=== PATIENT | male | born 1960 | race Caucasian/White ===

== ENCOUNTER 2019-04-05 11:34 | Emergency (ER) | payer BC ==
[2019-04-05] MEDS ORDERED: NS 0.9% 1000 ML** 1,000 ML IV ONE (12:19)
--- NOTE | 2019-04-05 12:19 | ED ---
Complex/Multi-Sys Presentation - HPI Summary HPI Summary: Patient is a 59 y/o M presenting to ED with complaints of bloody stool, light- headedness, lower back pain. He reports he has been experiencing light- headedness with changes in position. Patient had a bloody bowel movement earlier today, 04/05/19. He characterizes blood as bright red. He denies noticing any blood clots. No Hx of hemorrhoids and GI bleed, but patient has had diverticulitis previously. Patient is on Flomax and takes a low dose ASA daily. He occasionally takes Aleve. Last colonoscopy was 9 years ago and is reported to have been not concerning. On triage, pain is rated 1/10, nothing is noted to aggravate/alleviate Sx. Home medications and allergies are reviewed. - History Of Current Complaint Chief Complaint: EDGIBleed Time Seen by Provider: 04/05/19 12:03 Hx Obtained From: Patient Onset/Duration: Still Present Timing: Constant Severity Currently: Mild Location: Pain At: - lower back Aggravating Factor(s): changes in position aggravate lightheadedness Alleviating Factor(s): nothing Associated Signs And Symptoms: Positive: Dizziness - lightheadedness, Back Pain , Other - bloody bowel movement - Allergies/Home Medications Allergies/Adverse Reactions: Allergies Allergy/AdvReac Type Severity Reaction Status Date / Time codeine Allergy Unknown Unknown Verified 04/05/19 12:21 Reaction Details Home Medications: Home Medications Aspirin [Aspirin EC] 81 mg PO DAILY 04/05/19 [History Confirmed 04/05/19] Tamsulosin CAP* [Flomax CAP*] 0.4 mg PO DAILY 04/05/19 [History Confirmed ] PMH/Surg Hx/FS Hx/Imm Hx Endocrine/Hematology History: Denies: Hx Diabetes, Hx Thyroid Disease Cardiovascular History: Denies: Hx Hypertension Respiratory History: Denies: Hx Asthma, Hx Chronic Obstructive Pulmonary Disease (COPD) GI History: Denies: Hx Ulcer Infectious Disease History: No Infectious Disease History: Reports: Traveled Outside the [place] in Last 30 Days Denies: Hx Hepatitis, Hx Human Immunodeficiency Virus (HIV) - Family History Known Family History: Negative: Cardiac Disease, Hypertension, Diabetes - Social History Alcohol Use: Occasionally Substance Use Type: Reports: None Smoking Status (MU): Never Smoked Tobacco Review of Systems Genitourinary: Other - positive - bloody bowel movement Musculoskeletal: Other - positive - lower back pain Neurological: Other - positive - lightheadedness All Other Systems Reviewed And Are Negative: Yes Physical Exam - Summary Physical Exam Summary: VITAL SIGNS: Reviewed. GENERAL: Patient is a well-developed and nourished male who is lying comfortable in the stretcher. Patient is not in any acute respiratory distress. HEAD AND FACE: No signs of trauma. No ecchymosis, hematomas or skull depressions. No sinus tenderness. EYES: PERRLA, EOMI x 2, No injected conjunctiva, no nystagmus. EARS: Hearing grossly intact. Ear canals and tympanic membranes are within normal limits. MOUTH: Oropharynx within normal limits. NECK: Supple, trachea is midline, no adenopathy, no JVD, no carotid bruit, no c- spine tenderness, neck with full ROM. CHEST: Symmetric, no tenderness at palpation. LUNGS: Clear to auscultation bilaterally. No wheezing or crackles. CVS: Regular rate and rhythm, S1 and S2 present, no murmurs or gallops appreciated. ABDOMEN: Soft, non-tender. No signs of distention. No rebound, no guarding, and no masses palpated. Bowel sounds are normal. RECTAL EXAM: No gross blood, melena, or hemorrhoids. EXTREMITIES: FROM in all major joints, no edema, no cyanosis or clubbing. NEURO: Alert and oriented x 3. No acute neurological deficits. Speech is normal and follows commands. SKIN: Dry and warm. Triage Information Reviewed: Yes Vital Signs On Initial Exam: Initial Vitals Temp Pulse Resp BP Pulse Ox 98.5 F 69 18 147/91 95 04/05/19 11:36 04/05/19 11:36 04/05/19 11:36 04/05/19 11:36 04/05/19 11:36 Vital Signs Reviewed: Yes Diagnostics - Vital Signs Vital Signs Temp Pulse Resp BP Pulse Ox 04/05/19 11:36 98.5 F 69 18 147/91 95 - Laboratory Result Diagrams: 04/05/19 12:34 04/05/19 12:34 Lab Statement: Any lab studies that have been ordered have been reviewed, and results considered in the medical decision making process. Re-Evaluation - Re-Evaluation First Eval Re-Evaluation Time: 14:08 Comment: Results of labs, tests, and consult was discussed with the patient, he is agreeable with discharge to home and GI office follow-up Complex Multi-Symp Course/Dx Assessment/Plan: Patient is a 59 y/o M presenting to ED with complaints of bloody stool, light-headedness, lower back pain. He reports he has been experiencing light-headedness with changes in position. Patient had a bloody bowel movement earlier today, 04/05/19. He characterizes blood as bright red. He denies noticing any blood clots. No Hx of hemorrhoids and GI bleed, but patient has had diverticulitis previously. Patient is on Flomax and takes a low dose ASA daily. He occasionally takes Aleve. Last colonoscopy was 9 years ago and is reported to have been not concerning. Blood work without any significant abnormality except for BUN of 38, CPK of 264, urinalysis is negative for UTI. I discussed my physical exam and findings with Dr. Hardy from GI and he recommends for the patient to be discharged home and follow up with him as an outpatient. I discussed my findings and test results and the plan with the patient and he agrees. I recommended for the patient to return to the emergency room if he develops more bleeding, dizziness, lightheadedness or any other symptoms. The patient understands and agrees. - Diagnoses Provider Diagnoses: GI bleed - Physician Notifications Discussed Care Of Patient With: Warren Alvarenga Time Discussed With Above Provider: 14:06 Instructed by Provider To: Other - Patient's case was discussed with Dr. Alvarenga , Dr. Alvarenga recommends for patient to be discharged to home and follow up with him in office. Discharge - Sign-Out/Discharge Documenting (check all that apply): Patient Departure - discharge Patient Received Moderate/Deep Sedation with Procedure: No - Discharge Plan Condition: Stable Disposition: HOME Patient Education Materials: Gastrointestinal Bleeding (ED) Referrals: Caryn Murillo MD [Primary Care Provider] - 3 Days Warren Alvarenga MD [Medical Doctor] - 3 Days Additional Instructions: PLEASE RETURN TO ED FOR ANY NEW OR WORSENING SYMPTOMS. PLEASE FOLLOW-UP WITH YOUR PRIMARY CARE PHYSICIAN WITHIN THREE DAYS. - Billing Disposition and Condition Condition: STABLE Disposition: Home - Attestation Statements Document Initiated by Scribe: Yes Documenting Scribe: SEAN MILLIGAN Provider For Whom Scribe is Documenting (Include Credential): AMRIT BOLAÑOS MD Scribe Attestation: I, SEAN MILLIGAN, scribed for AMRIT BOLAÑOS MD on 04/06/19 at 0725. Scribe Documentation Reviewed: Yes Provider Attestation: The documentation as recorded by the scribeSEAN accurately reflects the service I personally performed and the decisions made by me, AMRIT BOLAÑOS MD Status of Scribe Document: Viewed
[2019-04-05 12:57] LABS: ABS Eosinophils 0.2 10^3/ul (0-0.6); ABS Monocytes 0.6 10^3/ul (0-0.8); ABS Neutrophils 2.5 10^3/ul (1.5-7.7); Eosinophil % 4.1 %; Hematocrit 45 % (42-52); Hemoglobin 15.1 g/dL (14.0-18.0); Lymphocyte % 37.3 %; Mean Corpuscular HGB Conc 34 g/dL (31-36); Mean Corpuscular Hemoglobin 30 pg (27-31); Mean Corpuscular Volume 89 fL (80-94); Mean Platelet Volume 8.6 fL (7.4-10.4); Nucleated Red Blood Cells % 0.3; Platelet Count 225 10^3/uL (150-450); Red Blood Count 5.08 10^6 /uL (4.18-5.48); Red Cell Distribution Width 14 % (10-15); White Blood Count 5.4 10^3/uL (3.5-10.8)
[2019-04-05 13:08] LABS: Albumin 4.5 g/dL (3.2-5.2); Albumin/Globulin Ratio 1.8 (1-3); BUN/Creatinine Ratio 28.9 (8-20); C Reactive Protein 2.16 mg/L (<8.01); Calcium 9.1 mg/dL (8.6-10.3); EGFR African American 95.9 (>60); EGFR Non-African American 79.2 (>60); Globulin 2.5 g/dL (2-4); Potassium 4.3 mmol/L (3.5-5.0); Total Bilirubin 0.9 mg/dL (0.2-1.0)
[2019-04-05 13:10] LABS: Activated Partial Thrombo Time 34.4 seconds (26.0-38.0); INR 0.97 (0.82-1.09)
[2019-04-05 13:53] LABS: Urine Appearance Cloudy; Urine Bilirubin Negative (Negative); Urine Blood Negative (Negative); Urine Color Yellow; Urine Glucose Negative (Negative); Urine Ketones Trace (Negative); Urine Nitrite Negative (Negative); Urine Protein Negative (Negative); Urine Specific Gravity 1.033 (1.010-1.030); Urine Urobilinogen Negative (Negative)
[2019-04-05 14:50] VITALS: BP 149/86
== END 2019-04-05 14:50 | disposition home or self-care (01) ==
LOC: ED 11:34
DX: K92.2 Gastrointestinal hemorrhage, unspecified (principal); Z79.82 Long term (current) use of aspirin; Z79.899 Other long term (current) drug therapy; Z88.5 Allergy status to narcotic agent
CPT/HCPCS: 36415; 80053; 81003; 82272; 82550; 83605; 83690; 83880; 85025; 85610; 85730; 86140; 86850; 86900; 86901; 96360; 99283

== ENCOUNTER 2019-07-23 22:24 | Observation (INO) | payer BC ==
--- OUTSIDE RECORDS SUMMARY | 2019-07-23 22:40 | XMS REPORT | Continuity of Care Document ---
:1960 External Reference #:[id number] Author Name Pj Haynes MD (transmitted by agent of provider Charu Carr) Address [address] [place] [address] Care Team Providers Name Role Phone Caryn Murillo MD - Family Care Team Information Stna [phone] Medicine Problems Description No Information Available Social History Type Date Description Comments Sex Unknown Tobacco Use Start: Unknown Patient has never smoked Smoking Status Reviewed: 07/09/19 Patient has never smoked Allergies, Adverse Reactions, Alerts Description No Known Drug Allergies Medications Active Medications SIG Qnty Indications Ordering Provider Date Naproxen One tab by 180tabs M54.5 Pj Haynes MD 07/09/2019 500mg Tablets mouth twice daily Tamsulosin HCL 1 by mouth Unknown 0.4mg every day Capsules Glucosamine Unknown Chondroitin 1500 Complex 1500Com Capsules Immunizations Description No Information Available Vital Signs Date Vital Result Comment 07/09/2019 8:57am Height 70 inches 5'10" Weight 224.00 lb Heart Rate 68 /min BP Systolic 144 mmHg BP Diastolic 88 mmHg Body Temperature 98.0 F Pain Level 4 O2 % BldC Oximetry 96 % BMI (Body Mass Index) 32.1 kg/m2 Results Description No Information Available Procedures Description No Information Available Medical Devices Description No Information Available Encounters Description No Information Available Assessments Date Code Description Provider 07/09/2019 M54.5 Low back pain Pj Haynes MD 07/09/2019 R76.8 Other specified abnormal immunological findings Pj Haynes MD in serum 07/09/2019 M06.4 Inflammatory polyarthropathy Pj Haynes MD 07/09/2019 M25.552 Pain in left hip Pj Haynes MD Plan of Treatment 07/09/2019 - Pj Haynes MDM54.5 Low back painNew Medication:Naproxen 500 mg - One tab by mouth twice dailyFollow up:6-8 kkaivN36.8 Other specified abnormal immunological findings in lkcgoO42.4 Inflammatory csqzjttbrgtqoanH01.552 Pain in left hip Functional Status Description No Information Available Mental Status Description No Information Available Referrals Description No Information Available
[2019-07-23] MEDS ORDERED: Aspirin 81 mg CHEW TAB* 81 MG TAB.CHEW PO ONE (23:27)
--- NOTE | 2019-07-23 23:28 | ED ---
HPI Chest Pain - HPI Summary HPI Summary: This pt is a 59 Y/O M [facility] by his family by EMS for CP that radiated into his neck that was rated a 3/10 and was located midsternal at 0900 this morning. He states that the pain could be described as pressure. He states that he was finishing a walk when the onset happened and became diaphoretic and SOB. He states that the pain started as an 8/10 and reduced to a 3/10 after he was given Nitro by EMS en route to [facility]. He denies any fevers, chills, N/V/D, and headaches. He states that he had no aggravating factors. He recently started taking Naproxen Sodium. He states that he has a pertinent FHx of both his father and uncle having cardiac issues starting in their 50s. He states that his father had to get a triple bypass. He has a PMHx of exposure to Hep. C. - History of Current Complaint Chief Complaint: EDChestPainROMI Hx Obtained From: Patient Onset/Duration: Started Hours Ago Time of Onset: 09:00 Timing: Constant Initial Severity: Severe - 8/10 Current Severity: Mild Pain Intensity: 3 Pain Scale Used: 0-10 Numeric Chest Pain Location: Mid Sternal Chest Pain Radiates: Yes Chest Pain Radiates To:: Other - neck Character: Pressure/Squeezing Aggravating Factor(s): Exertion - states onset started after a walk Alleviating Factor(s): NTG 123 - pain reduced when given nitro Associated Signs and Symptoms: Positive: Negative - diarrhea, Chest Pain, Shortness of Breath, Diaphoresis. Negative: Headaches, Fever, Chills, Nausea, Vomiting - Allergy/Home Medications Allergies/Adverse Reactions: Allergies Allergy/AdvReac Type Severity Reaction Status Date / Time codeine Allergy Unknown Unknown Verified 07/23/19 22:30 Reaction Details PMH/Surg Hx/FS Hx/Imm Hx Previously Healthy: Yes Endocrine/Hematology History: Denies: Hx Diabetes, Hx Thyroid Disease Cardiovascular History: Denies: Hx Hypertension Respiratory History: Denies: Hx Asthma, Hx Chronic Obstructive Pulmonary Disease (COPD) GI History: Denies: Hx Ulcer Sensory History: Reports: Hx Contacts or Glasses Opthamlomology History: Reports: Hx Contacts or Glasses - Cancer History Hx Chemotherapy: No Hx Radiation Therapy: No - Surgical History Surgical History: Yes Surgery Procedure, Year, and Place: hernia repair 1962 - Immunization History Date of Tetanus Vaccine: UNK Immunizations Up to Date: No Infectious Disease History: No Infectious Disease History: Denies: Hx Hepatitis, Hx Human Immunodeficiency Virus (HIV), Traveled Outside the [place] in Last 30 Days - Family History Known Family History: Positive: Cardiac Disease - mother and father have had bypass. Paternal parent's young Negative: Hypertension, Diabetes - Social History Occupation: Employed Full-time Lives: With Family Alcohol Use: Occasionally Hx Substance Use: No Substance Use Type: Reports: None Hx Tobacco Use: No Smoking Status (MU): Never Smoked Tobacco Review of Systems - ROS Summary Review of Systems Summary: Home Medications Medication Instructions Recorded Confirmed Type Aspirin [Aspirin EC] 81 mg PO DAILY 04/05/19 07/23/19 History Tamsulosin CAP* [Flomax CAP*] 0.4 mg PO DAILY 04/05/19 07/23/19 History Naproxen Sodium [Aleve] 440 mg PO BID PRN 04/15/19 07/23/19 History Positive: Skin Diaphoresis. Negative: Fever, Chills Positive: Chest Pain Positive: Shortness Of Breath Negative: Vomiting, Diarrhea, Nausea Negative: Headache All Other Systems Reviewed And Are Negative: Yes Physical Exam Triage Information Reviewed: Yes Vital Signs On Initial Exam: Initial Vitals Temp Pulse Resp BP Pulse Ox 98.0 F 77 18 158/90 94 07/23/19 22:25 07/23/19 22:25 07/23/19 22:25 07/23/19 22:25 07/23/19 22:25 Vital Signs Reviewed: Yes Procedures - Sedation Patient Received Moderate/Deep Sedation with Procedure: No Diagnostics - Vital Signs Vital Signs Temp Pulse Resp BP Pulse Ox 07/23/19 22:25 98.0 F 77 18 158/90 94 - Laboratory Result Diagrams: 07/24/19 05:20 07/24/19 05:20 Lab Statement: Any lab studies that have been ordered have been reviewed, and results considered in the medical decision making process. - EKG 2224 Cardiac Rate: NL - 80 BPM EKG Rhythm: Sinus Rhythm ST Segment: Normal Ectopy: None Summary of EKG Findings: EKG at 2224 reveals normal sinus rhythm with rate of 80 BPM, no acute changes, no ischemic changes. This E[place] [address]/19. 0025 Cardiac Rate: NL - 71 BPM EKG Rhythm: Sinus Rhythm ST Segment: Normal Ectopy: None EKG Comparison: No Significant Change - from previous EKG Summary of EKG Findings: EKG at 0025 reveals normal sinus rhythm with rate of 71 BPM, no acute changes, no ischemic changes. This EKG was reviewed and interpreted by Dr. Morillo at 0026 07/24/19. No change from previous EKG taken at 2225 07/23/19. Chest Pain Course/Dx - Course Course Of Treatment: 59-year-old male presents from home with chest pain. Exertional chest pain and shortness of breath started after walking his dog today. Patient improved with nitroglycerin en route. He has had aspirin today. Symptoms improved before I examined patient. During his workup he got up to the bathroom and developed increased chest pain. No EKG changes. Pain did improve with EKG. Patient had negative troponins and no EKG changes but patient has elevated heart score of 45. Refer to hospitalist for admission. - Diagnoses Provider Diagnoses: Chest pain - Provider Notifications Discussed Care Of Patient With: Sergei Lorenzo Time Discussed With Above Provider: 01:09 Instructed by Provider To: Admit As Inpatient Discharge ED - Sign-Out/Discharge Documenting (check all that apply): Patient Departure - admitted All imaging exams completed and their final reports reviewed: Yes - Discharge Plan Condition: Stable Disposition: ADMITTED TO [facility] - Billing Disposition and Condition Condition: STABLE Disposition: Admitted to [facility] - Attestation Statements Document Initiated by Gilibe: Yes Documenting Scribe: Brendan Jackson Provider For Whom Gilibenrico is Documenting (Include Credential): Teressa Morillo MD Scribe Attestation: IBrendan, scribed for Teressa Morillo MD on 07/24/19 at 2031. Scribe Documentation Reviewed: Yes Provider Attestation: The documentation as recorded by the Brendan griffin accurately reflects the service I personally performed and the decisions made by me, Teressa Morillo MD Status of Scribe Document: Viewed
[2019-07-23 23:37] LABS: ABS Eosinophils 0.3 10^3/ul (0-0.6); ABS Lymphocytes 2.3 10^3/ul (1.0-4.8); ABS Monocytes 0.6 10^3/ul (0-0.8); Eosinophil % 5.3 %; Hematocrit 45 % (42-52); Hemoglobin 15.4 g/dL (14.0-18.0); Lymphocyte % 37.1 %; Mean Corpuscular HGB Conc 34 g/dL (31-36); Mean Corpuscular Hemoglobin 30 pg (27-31); Mean Corpuscular Volume 87 fL (80-94); Mean Platelet Volume 8.7 fL (7.4-10.4); Nucleated Red Blood Cells % 0.1; Platelet Count 223 10^3/uL (150-450); Red Blood Count 5.13 10^6 /uL (4.18-5.48); Red Cell Distribution Width 14 % (10-15); White Blood Count 6.2 10^3/uL (3.5-10.8)
[2019-07-23 23:47] LABS: Albumin 4.1 g/dL (3.2-5.2); Albumin/Globulin Ratio 1.4 (1-3); BUN/Creatinine Ratio 20.2 (8-20); Calcium 9.7 mg/dL (8.6-10.3); EGFR African American 88.4 (>60); EGFR Non-African American 73.1 (>60); Magnesium 2.1 mg/dL (1.9-2.7); Potassium 3.7 mmol/L (3.5-5.0); Total Bilirubin 0.8 mg/dL (0.2-1.0); Total Protein 7.1 g/dL (6.4-8.9)
[2019-07-23 23:48] LABS: Troponin I 0.01 ng/mL (<0.03)
[2019-07-24] MEDS ORDERED: Nitroglycerin TAB 0.4 MG* 0.4 MG TAB SL ONE (00:22)
[2019-07-24] MEDS ORDERED: Nitroglycerin TAB 0.4 MG* 0.4 MG TAB ONE (00:24)
[2019-07-24] MEDS ORDERED: Metoprolol Tartrate TAB* 25 MG PO SCH (03:00)
[2019-07-24] MEDS ORDERED: Lisinopril TAB* 10 MG PO SCH (04:00)
[2019-07-24] MEDS ORDERED: Enoxaparin(*) 40 MG/0.4 ML SYR SUBCUT SCH (04:00)
[2019-07-24 05:35] LABS: ABS Basophils 0.1 10^3/ul (0-0.2); ABS Eosinophils 0.2 10^3/ul (0-0.6); ABS Lymphocytes 1.8 10^3/ul (1.0-4.8); ABS Monocytes 0.6 10^3/ul (0-0.8); ABS Neutrophils 3.6 10^3/ul (1.5-7.7); Eosinophil % 2.8 %; Hematocrit 44 % (42-52); Hemoglobin 15.2 g/dL (14.0-18.0); Lymphocyte % 28.4 %; Mean Corpuscular HGB Conc 34 g/dL (31-36); Mean Corpuscular Hemoglobin 30 pg (27-31); Mean Corpuscular Volume 87 fL (80-94); Mean Platelet Volume 8.2 fL (7.4-10.4); Nucleated Red Blood Cells % 0.1; Platelet Count 235 10^3/uL (150-450); Red Blood Count 5.09 10^6 /uL (4.18-5.48); Red Cell Distribution Width 13 % (10-15); White Blood Count 6.2 10^3/uL (3.5-10.8)
[2019-07-24 05:51] LABS: Calcium 9.5 mg/dL (8.6-10.3); EGFR African American 98.2 (>60); EGFR Non-African American 81.1 (>60); HDL Cholesterol 40.6 mg/dL; Potassium 4.4 mmol/L (3.5-5.0)
[2019-07-24] MEDS ORDERED: Aspirin EC TAB* 81 MG TAB.EC PO SCH (09:00)
[2019-07-24] MEDS ORDERED: Tamsulosin CAP* 0.4 MG PO SCH (09:00)
--- NOTE | 2019-07-24 10:23 | HP ---
CC: Dr. Caryn Murillo * ADMISSION HISTORY AND PHYSICAL: DATE OF ADMISSION: 07/24/19 CHIEF COMPLAINT: Chest pain. HISTORY OF PRESENT ILLNESS: This is a 59-year-old gentleman with past medical history of benign prostatic hypertrophy,previous history of hep C; now undetectable viral load, and diverticulitis who came in due to chest pain. The patient stated that he was in his usual state of health. He had his general visit with his primary care physician this morning and was told that everything was clear and he was walking his dog today and once he got home he started noticing substernal chest pain that was radiating to the back of his head, so he notified his , who called the ambulance and the patient was brought to the ER. On route to the ER, the patient received nitroglycerin, which helped relieve the pain from 8/10 in intensity to 3/10. While in the ER, he went to go to the bathroom and he had another recurrence of his pain, at which point he received another dose of substernal nitroglycerin. He otherwise did have some accompanying shortness of breath and feeling diaphoretic and sweating profusely according to the during the episodes. He stated that he never had such similar pains or any similar episode in the past. He offers no complaints of palpitation, fever, chills, cough, nausea, vomiting, diarrhea, or any sick contacts. PAST MEDICAL HISTORY: As mentioned, benign prostatic hypertrophy, hepatitic C was diagnosed by his merchandising intern on an incidental basis and further workup revealed that the viral load was undetectable suggesting he was previously exposed to hep C and that has been resolved. He also had a history of diverticulitis and osteoarthritis of his hip. PAST SURGICAL HISTORY: He has had multiple colonoscopies and also had umbilical hernia repaired when he was only 1 year old. HOME MEDICATIONS: The patient is currently on: 1. Flomax 0.4 mg oral daily. 2. Aspirin 81 mg oral daily. 3. Aleve as needed for pain, which was roughly started a week ago. ALLERGIES: The patient is allergic to CODEINE, which causes unknown reaction. FAMILY HISTORY: Both mom and dad had coronary artery bypass grafting; father had it in his 50s and mother in her 60s. Father at age 86. Mother is still alive at age 89. 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 Never smoked. Does drink alcohol every other day, usually a couple of glasses of wine. Denies any drug use. Lives with his . He is otherwise a full code. REVIEW OF SYSTEMS: A 14-point review of systems did not reveal any new information other than what is mentioned in the HPI. PHYSICAL EXAMINATION GENERAL: The patient is awake, alert, oriented x3, did not appear to be in any acute respiratory distress. VITAL SIGNS: In the ER, BP was noted to be elevated persistently as high as systolic of 180, temperature recorded at 98 degrees Fahrenheit, heart rate was 74, respiration rate 16, saturating 98% on room air. HEAD AND NECK: Atraumatic, normocephalic. Bilateral pupils are reactive. Oral mucosa is moist. Neck is supple. No jugular venous distention. LUNGS: Clear to auscultation bilaterally. No wheezing, rhonchi, or rales. HEART: S1, S2. Regular rate and rhythm. ABDOMEN: Soft, nontender, nondistended. EXTREMITIES: No cyanosis, clubbing, or edema. DIAGNOSTIC STUDIES/LAB DATA: Labs: CBC was unremarkable. Coagulation profile unremarkable. Comprehensive metabolic panel shows elevated random glucose at 142 and rest of the BMP was unremarkable. LFTs were within normal limits. Two sets of troponin was negative. Lactic acid was normal. B-natriuretic peptide was noted to be normal. Portable chest x-ray did not reveal any obvious infiltrate, official read by radiology is still pending. EKG: There is no EKG to compare, but current EKG does show sinus rhythm at 71 beats per minute without any ST elevation. IMPRESSION: This is a 59-year-old gentleman with uncontrolled blood pressure, family history of coronary artery bypass graft in both mom and dad, and elevated BMI greater than 30 with moderate suspicion for acute coronary event, noted to have a HEART score of 4. ASSESSMENT: 1. Chest pain, rule out acute coronary syndrome. Given the HEART score of 4, we will observe him on telemetry and get serial cardiac enzymes and risk stratify the patient with A1c and lipid panel with the morning labs and consider cardiology consultation regarding stress test and echocardiogram in the morning. 2. Uncontrolled high blood pressure. We will start the patient on metoprolol and lisinopril and monitor blood pressure on telemetry. 3. History of benign prostatic hypertrophy. Continue Flomax. 4. History of arthritis. 5. History of hepatitis, currently in resolution with undetectable viral load and normal LFTs. 6. DVT prophylaxis. With subcutaneous Lovenox. 7. Code status. Full code. [id number]/[facility] #: [id number] [facility]
--- NOTE | 2019-07-24 11:43 | PN ---
Subjective Date of Service: 07/24/19 Interval History: Ms. Patterson reports that he is feeling well. He is happy with the plan for discharge to home. Objective Active Medications: Aspirin (Aspirin Ec Tab*) 81 mg PO DAILY [facility] Enoxaparin Sodium (Lovenox(*)) 40 mg SUBCUT 0600 [facility] Lisinopril (Prinivil Tab*) 10 mg PO DAILY [facility] Metoprolol Tartrate (Lopressor Tab*) 12.5 mg PO Q12HR [facility] Tamsulosin HCl (Flomax Cap*) 0.4 mg PO DAILY [facility] Vital Signs - 8 hr 07/24/19 07/24/19 07/24/19 03:42 03:50 04:00 Temperature 98.3 F 97.8 F Pulse Rate 70 67 63 Respiratory 18 18 Rate Blood Pressure 172/91 149/61 (mmHg) O2 Sat by Pulse 98 94 Oximetry 07/24/19 07/24/19 07/24/19 07:15 08:00 09:27 Temperature 97.9 F 97.9 F Pulse Rate 61 61 71 Respiratory 20 20 Rate Blood Pressure 139/96 139/96 (mmHg) O2 Sat by Pulse 96 96 Oximetry Oxygen Devices in Use Now: None Appearance: Male sitting up in bed in NAD Eyes: No Scleral Icterus Ears/Nose/Mouth/Throat: Mucous Membranes Moist Respiratory: Symmetrical Chest Expansion and Respiratory Effort, Clear to Auscultation Cardiovascular: NL Sounds; No Murmurs; No JVD, No Edema Abdominal: NL Sounds; No Tenderness; No Distention Extremities: No Edema Skin: No Rash or Ulcers Neurological: Alert and Oriented x 3, NL Muscle Strength and Tone Nutrition: Taking PO's Result Diagrams: 07/24/19 05:20 07/24/19 05:20 Assess/Plan/Problems-Billing Assessment: Mr. Patterson is a 59 yo M with a PMH of BPH only who was admitted on 07/24/19 with chest pain. - Patient Problems (1) Chest pain Comment: - Trop 0.01 x 3, EKG shows sinus rhythm with no evidence of ischemia - HgbA1c 5.7, lipids reasonably well controlled - Continue aspirin and lisinopril - Appreciate Cardiology consult, ok to discharge for outpatient stress test (2) Hypertension Comment: - SBP 130-160s; SBP 200s during chest pain episode per patient - Lisinopril started, will follow up with PCP (3) DVT prophylaxis Comment: - Lovenox (4) Full code status Comment: Status and Disposition: OBV. Discharge to home.
[2019-07-24 14:20] VITALS: BP 121/66
--- NOTE | 2019-07-24 14:45 | DS ---
CC: Dr. Murillo * [facility] MEDICINE DISCHARGE SUMMARY: DATE OF ADMISSION: 07/24/19 DATE OF DISCHARGE: 07/24/19 PRIMARY CARE PHYSICIAN: Dr. Murillo. ATTENDING PHYSICIAN: Dr. Rob Sanchez * (dictation provided by Mary Cochran NP). PRIMARY DIAGNOSES: 1. Chest pain. 2. Uncontrolled hypertension. SECONDARY DIAGNOSES: 1. History of benign prostatic hypertrophy. 2. Diverticulitis. 3. Osteoarthritis of his hip. PAST SURGICAL HISTORY: 1. Multiple colonoscopies. 2. Umbilical hernia repair. MEDICATIONS OUTPATIENT: 1. Flomax 0.4 mg oral daily. 2. Aspirin 81 mg oral daily. 3. Lisinopril 10 mg oral daily (new medication). Please hold naproxen. HOSPITAL COURSE: Mr. Patterson is a 59-year-old male who presented to the hospital late evening on 07/23/19 with concern for chest pain. Please see the dictated H and P from Dr. Lorenzo for complete details. In brief, the patient states that he developed substernal chest pain that radiated to the back of his head. The pain was rated at 8/10. He called emergency medical services and was brought to the hospital. Here in the emergency room, he was given nitroglycerin, which decreased the intensity of his pain from 8/10 to 3/10. He did have some accompanying shortness of breath and diaphoresis. In the emergency room, the patient had troponin which was 0.00 and EKG which showed no evidence of ischemia, but based on the symptoms, he was placed on observation in the hospital. Mr. Patterson has subsequently had 2 additional troponins both of which were 0.01. He had a repeat EKG, which showed no evidence of ischemia. He has been chest pain-free. On arrival of emergency medical services, the patient's blood pressure was noted to be quite high systolically at approximately 200 per the patient's report. Here in the hospital, his blood pressure has been running up as high as 170s. He does note that he started recently on naproxen and this is a nonsteroidal anti-inflammatory, it could have increased his blood pressure. Regardless, we are asking him to stop this, Aleve, and any other NSAIDs and to start lisinopril 10 mg oral daily. Mr. Patterson was seen in consultation by Dr. Randolph from the cardiology team today. He agrees that based on the patient's negative troponin and negative EKG that it would be appropriate for him to receive an outpatient stress test early this next week; therefore, he is being discharged to home today to follow up for outpatient stress testing. Mr. Patterson is medically stable for discharge to home. DISPOSITION: To home. DIET: Low-fat, low-salt. ACTIVITY: As tolerated. FOLLOWUP PLANS: 1. Please follow up with outpatient stress testing. The patient has been given the number for [facility] in the event that he does not hear from them on Friday. 2. Please follow up with Dr. Murillo per routine after this hospitalization. 3. The patient has been asked to obtain a blood pressure cuff for home if possible or to check his blood pressure intermittently at local pharmacies and to provide those readings to Dr. Murillo to help with the decisions regarding blood pressure management. TIME SPENT: Approximately 60 minutes was spent on the discharge of this patient , more than half the time was spent with the patient at the bedside reviewing the events leading up to this hospitalization, performing the physical examination, and reviewing my plan of care. MARY COCHRAN, [place] [id number]/[facility] #: [id number] RISHI
--- NOTE | 2019-07-24 17:12 | CONS ---
CC: Dr. Murillo CARDIOLOGY CONSULTATION: DATE OF CONSULT: 07/24/19 REASON FOR CONSULT: Chest pain. HISTORY OF PRESENT ILLNESS: The patient is a 59-year-old gentleman with a history of prostatic hyper trophy who came to the emergency room because of chest pain. The patient states that he was in his [facility] state of health yesterday when he started experiencing chest pain in the afternoon. The patient states that it was a chest pain that was fairly intense in nature. It radiated up into his jaw and into his back. He said at that point, he talked to his and decided to come [facility]. On arrival to the emergency room, he received nitroglycerin and his chest pain relieved significa ntly. He still had 3/10 chest pain on arrival. On arriving in the emergency room, his EKG was unrema rkable. His first troponin was unremarkable. The patient was admitted overnight. PAST MEDICAL HISTORY: Significant for prostatic hypertrophy, hepatitis C, diverticulitis, and osteoa rthritis. PAST SURGICAL HISTORY: Colonoscopy and umbilical hernia repair. HOME MEDICATIONS: 1. Flomax 0.4 mg a day. 2. Aspirin 81 mg a day. ALLERGIES: To CODEINE. FAMILY HISTORY: His father had coronary artery bypass surgery in his 50s. Mother had bypass surgery in her 60s; mother is still alive at 89. SOCIAL HISTORY: He is . 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 Denies tobacco. Rare alcohol use. No recreational drug use. REVIEW OF SYSTEMS: Negative for fevers and chills. Negative for changes in bowel or bladder habits. Negative for changes in weight. Other 12-point review is unremarkable. PHYSICAL EXAM: On physical exam, height is 5 feet 10 inches, weight 224 pounds. Temperature is 97.6, heart rate is 65, blood pressure 131/70, respiratory rate is 20. On arrival to the emergency room, the patient's blood pressure was 160/90. Sclerae anicteric. Oroph arynx pink without erythema. Carotids are 2+ without bruits. JVD is normal. Thyroid is normal. Ca rdiac Exam: S1, S2 without any murmurs, rubs, or gallops. Lungs are clear to auscultation bilateral ly. There is no dullness to percussion. Abdomen is soft, nontender, nondistended. Normoactive key l sounds. Extremities show no edema. He has 2+ pulses throughout. The patient is awake, alert, and oriented. He moves all 4 extremities equally. DIAGNOSTIC STUDIES/LAB DATA: Laboratory Studies: CBC within normal limits. Chemistries within linh l limits. Troponins are negative x3. Total cholesterol 194, LDL cholesterol 137. EKG shows normal sinus rhythm with normal axis and intervals. IMPRESSION: This is a 59-year-old gentleman who was admitted to the hospital with chest pain. Overa ll, his symptoms are somewhat concerning in that he had chest pain radiate up into his jaw and his ba ck. On arrival, he was still having 3/10 chest pain. His initial EKG is unremarkable. His troponin s are negative x3. The patient is at risk for coronary artery disease given his age and his history of hypertension. I think the patient can be discharged home on an aspirin a day and NICOLE inhibitor for blood pressure c ontrol. The patient will be scheduled for an outpatient stress test for further evaluation. [id number]/[facility] #: [id number]
== END 2019-07-24 14:40 | disposition home or self-care (01) ==
LOC: ED 22:24 → MEDTELE 07-24 03:11
PROVIDERS: ADMIT Internal Medicine; ATTEND Internal Medicine
DX: R07.9 Chest pain, unspecified (principal); I10 Essential (primary) hypertension; N40.0 Benign prostatic hyperplasia without lower urinary tract symptoms; K57.92 Diverticulitis of intestine, part unspecified, without perforation or abscess without bleeding; M16.10 Unilateral primary osteoarthritis, unspecified hip; Z79.82 Long term (current) use of aspirin; Z79.899 Other long term (current) drug therapy; R06.02 Shortness of breath; R19.7 Diarrhea, unspecified
CPT/HCPCS: 36415; 71045; 80048; 80053; 80061; 83036; 83605; 83735; 83880; 84484; 85025; 85610; 93005; 96372; 99285; A9270-GY; G0378; J1650

== ENCOUNTER 2019-07-28 08:52 | Emergency (ER) | payer BC ==
--- OUTSIDE RECORDS SUMMARY | 2019-07-28 09:06 | XMS REPORT | Continuity of Care Document ---
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 Flomax Every Day Unknown 04/05/2019 0.4mg Capsules Naproxen Unknown 500mg Tablets History Medications Ciprofloxacin HCL 1 tablet twice 14tabs Joselyn 04/15/2019 - 500mg daily x 7 days MD Luisa 07/23/2019 Tablets Metronidazole take 1 tablet three 21tabs Joselyn 04/15/2019 - 500mg times a day x 7 MD Luisa 07/23/2019 Tablets days. avoid all alcohol use with this medication. Suprep Bowel Prep Kit use as directed as 354ml Joselyn 04/12/2019 - on printed MD Luisa 07/23/2019 17.5-3.13-1.6GM/177ML instructions given Solution to patient. patient may administer to self in preparation for procedures Aspirin Ec Every Day Unknown 04/05/2019 - 81mg Tablets 07/23/2019 DR Malik Description No Information Available Vital Signs Date Vital Result Comment 07/23/2019 1:40pm Height 70 inches 5'10" Weight 222.00 lb BP Systolic 146 mmHg BP Diastolic 87 mmHg Heart Rate 85 /min BMI (Body Mass Index) 31.9 kg/m2 04/06/2019 9:35am Height 70 inches 5'10" Weight 225.00 lb BP Systolic 158 mmHg BP Diastolic 88 mmHg Heart Rate 70 /min BMI (Body Mass Index) 32.3 kg/m2 Results Test Acquired Date Facility Test Result H/L Range Note Laboratory test 07/09/2019 [facility] Hepatitis C Rna <pending> finding Ser/PLS QN PCR Laboratory test 07/09/2019 [facility] Hepatitis B <pending> finding Surface Ag Hepatitis C AB Ser QN Eia <pending> TB Quantiferon QL 07/09/2019 [facility] Z#Other Observations <pending > Blood Mamie Laboratory test 07/09/2019 [facility] Aldolase Blood <pending> finding Hepatitis B Core Antibody <pending> CMP(!) 07/09/2019 [facility] Sodium(!) <pending> Potassium(!) <pending> Chloride Serum/Plasma(!) <pending> Carbon Dioxide Ser/Plasm(!) <pending> BUN - Urea Nitrogen(!) <pending> Calcium Ser/Plasma Mass/Vol(!) <pending> Creatinine Serum Mass/Vol(!) <pending> Glucose Serum(!) <pending> BUN/Creatinine Ratio(!) <pending> Albumin Serum/Plasma(!) <pending> Alkaline Phosphatase(!) <pending> Bilirubin Total Mass/Vol(!) <pending> Ast - Sgot <pending> Alt - SGPT <pending> Protein Total <pending> Laboratory test 07/09/2019 [facility] C-Reative Protein <pending> finding CPK-Creatinine Kinase(!) <pending> CBC W/Auto 07/09/2019 [facility] White Blood <pending> Differential(!) Count Ser Auto CNT RBC Red Blood Count <pending> Hemoglobin Blood <pending> Hematocrit <pending> MCV (Corpuscular Volume) <pending> MCH (Corpuscular Hemoglobin) <pending> MCHC (Corpuscular Hemog Conc) <pending> RDW <pending> Platelet Count Blood Auto CNT <pending> MPV <pending> Lymph% <pending> [place]% <pending> Neutrophil % <pending> Absolute Lymphocytes <pending> Absolute Monocytes <pending> Absolute Neutrophils <pending> Laboratory test 04/15/2019 [facility] SEE RESULT 1, 2 finding Pathology Order BELOW Laboratory Studies 04/05/2019 N2N/CCD Import Mean Platelet 8.6 fL 7.4- 10. Volume 4 Mean Corpuscular Volume 89 fL 80-94 Mean Corpuscular Hemoglobin Concent 34 g/dL 31-36 Mean Corpuscular Hemoglobin 30 pg 27-31 Lymphocytes (%) (Auto) 37.3 % Hemoglobin 15.1 g/dL 14.0-18.0 Hematocrit 45 % 42-52 Eosinophils (%) (Auto) 4.1 % Basophils (%) (Auto) 0.7 % Absolute Neutrophils (auto) 2.5 10^3/ul 1.5-7.7 Absolute Monocytes (auto) 0.6 10^3/ul 0-0.8 Absolute Lymphocytes (auto) 2.0 10^3/ul 1.0-4.8 Absolute Eosinophils (auto) 0.2 10^3/ul 0-0.6 Absolute Basophils (auto) 0.0 10^3/ul 0-0.2 Laboratory Studies 04/05/2019 N2N/CCD Import Monocytes (%) (Auto) 11.8 % Mean Platelet Volume 8.6 fL 7.4-10.4 Mean Corpuscular Volume 89 fL 80-94 Mean Corpuscular Hemoglobin Concent 34 g/dL 31-36 Mean Corpuscular Hemoglobin 30 pg 27-31 Lymphocytes (%) (Auto) 37.3 % Hemoglobin 15.1 g/dL 14.0-18.0 Hematocrit 45 % 42-52 Eosinophils (%) (Auto) 4.1 % Basophils (%) (Auto) 0.7 % Absolute Neutrophils (auto) 2.5 10^3/ul 1.5-7.7 Absolute Monocytes (auto) 0.6 10^3/ul 0-0.8 Absolute Lymphocytes (auto) 2.0 10^3/ul 1.0-4.8 Absolute Eosinophils (auto) 0.2 10^3/ul 0-0.6 Absolute Basophils (auto) 0.0 10^3/ul 0-0.2 Laboratory Studies 04/05/2019 N2N/CCD Import Neutrophils (%) (Auto) 46.1 % Monocytes (%) (Auto) 11.8 % Mean Platelet Volume 8.6 fL 7.4-10.4 Mean Corpuscular Volume 89 fL 80-94 Mean Corpuscular Hemoglobin Concent 34 g/dL 31-36 Mean Corpuscular Hemoglobin 30 pg 27-31 Lymphocytes (%) (Auto) 37.3 % Hemoglobin 15.1 g/dL 14.0-18.0 Hematocrit 45 % 42-52 Eosinophils (%) (Auto) 4.1 % Basophils (%) (Auto) 0.7 % Absolute Neutrophils (auto) 2.5 10^3/ul 1.5-7.7 Absolute Monocytes (auto) 0.6 10^3/ul 0-0.8 Absolute Lymphocytes (auto) 2.0 10^3/ul 1.0-4.8 Absolute Eosinophils (auto) 0.2 10^3/ul 0-0.6 Absolute Basophils (auto) 0.0 10^3/ul 0-0.2 Laboratory Studies 04/05/2019 N2N/CCD Import Nucleated RBC Absolute 0.0 10^ 3/ul Count (auto) Neutrophils (%) (Auto) 46.1 % Monocytes (%) (Auto) 11.8 % Mean Platelet Volume 8.6 fL 7.4-10.4 Mean Corpuscular Volume 89 fL 80-94 Mean Corpuscular Hemoglobin Concent 34 g/dL 31-36 Mean Corpuscular Hemoglobin 30 pg 27-31 Lymphocytes (%) (Auto) 37.3 % Hemoglobin 15.1 g/dL 14.0-18.0 Hematocrit 45 % 42-52 Eosinophils (%) (Auto) 4.1 % Basophils (%) (Auto) 0.7 % Absolute Neutrophils (auto) 2.5 10^3/ul 1.5-7.7 Absolute Monocytes (auto) 0.6 10^3/ul 0-0.8 Absolute Lymphocytes (auto) 2.0 10^3/ul 1.0-4.8 Absolute Eosinophils (auto) 0.2 10^3/ul 0-0.6 Absolute Basophils (auto) 0.0 10^3/ul 0-0.2 Laboratory Studies 04/05/2019 N2N/CCD Import Nucleated Red Blood Cells % 0.3 Nucleated RBC Absolute Count (auto) 0.0 10^3/ul Neutrophils (%) (Auto) 46.1 % Monocytes (%) (Auto) 11.8 % Mean Platelet Volume 8.6 fL 7.4-10.4 Mean Corpuscular Volume 89 fL 80-94 Mean Corpuscular Hemoglobin Concent 34 g/dL 31-36 Mean Corpuscular Hemoglobin 30 pg 27-31 Lymphocytes (%) (Auto) 37.3 % Hemoglobin 15.1 g/dL 14.0-18.0 Hematocrit 45 % 42-52 Eosinophils (%) (Auto) 4.1 % Basophils (%) (Auto) 0.7 % Absolute Neutrophils (auto) 2.5 10^3/ul 1.5-7.7 Absolute Monocytes (auto) 0.6 10^3/ul 0-0.8 Absolute Lymphocytes (auto) 2.0 10^3/ul 1.0-4.8 Absolute Eosinophils (auto) 0.2 10^3/ul 0-0.6 Absolute Basophils (auto) 0.0 10^3/ul 0-0.2 Laboratory Studies 04/05/2019 N2N/CCD Import Platelet Count 225 10^3/uL 150-450 Nucleated Red Blood Cells % 0.3 Nucleated RBC Absolute Count (auto) 0.0 10^3/ul Neutrophils (%) (Auto) 46.1 % Monocytes (%) (Auto) 11.8 % Mean Platelet Volume 8.6 fL 7.4-10.4 Mean Corpuscular Volume 89 fL 80-94 Mean Corpuscular Hemoglobin Concent 34 g/dL 31-36 Mean Corpuscular Hemoglobin 30 pg 27-31 Lymphocytes (%) (Auto) 37.3 % Hemoglobin 15.1 g/dL 14.0-18.0 Hematocrit 45 % 42-52 Eosinophils (%) (Auto) 4.1 % Basophils (%) (Auto) 0.7 % Absolute Neutrophils (auto) 2.5 10^3/ul 1.5-7.7 Absolute Monocytes (auto) 0.6 10^3/ul 0-0.8 Absolute Lymphocytes (auto) 2.0 10^3/ul 1.0-4.8 Absolute Eosinophils (auto) 0.2 10^3/ul 0-0.6 Absolute Basophils (auto) 0.0 10^3/ul 0-0.2 Laboratory Studies 04/05/2019 N2N/CCD Import Red Blood 5.08 10^6/uL 4.18 -5.48 Count Platelet Count 225 10^3/uL 150-450 Nucleated Red Blood Cells % 0.3 Nucleated RBC Absolute Count (auto) 0.0 10^3/ul Neutrophils (%) (Auto) 46.1 % Monocytes (%) (Auto) 11.8 % Mean Platelet Volume 8.6 fL 7.4-10.4 Mean Corpuscular Volume 89 fL 80-94 Mean Corpuscular Hemoglobin Concent 34 g/dL 31-36 Mean Corpuscular Hemoglobin 30 pg 27-31 Lymphocytes (%) (Auto) 37.3 % Hemoglobin 15.1 g/dL 14.0-18.0 Hematocrit 45 % 42-52 Eosinophils (%) (Auto) 4.1 % Basophils (%) (Auto) 0.7 % Absolute Neutrophils (auto) 2.5 10^3/ul 1.5-7.7 Absolute Monocytes (auto) 0.6 10^3/ul 0-0.8 Absolute Lymphocytes (auto) 2.0 10^3/ul 1.0-4.8 Absolute Eosinophils (auto) 0.2 10^3/ul 0-0.6 Absolute Basophils (auto) 0.0 10^3/ul 0-0.2 Laboratory Studies 04/05/2019 N2N/CCD Import Red Cell Distribution 14 % 10-15 Width Red Blood Count 5.08 10^6/uL 4.18-5.48 Platelet Count 225 10^3/uL 150-450 Nucleated Red Blood Cells % 0.3 Nucleated RBC Absolute Count (auto) 0.0 10^3/ul Neutrophils (%) (Auto) 46.1 % Monocytes (%) (Auto) 11.8 % Mean Platelet Volume 8.6 fL 7.4-10.4 Mean Corpuscular Volume 89 fL 80-94 Mean Corpuscular Hemoglobin Concent 34 g/dL 31-36 Mean Corpuscular Hemoglobin 30 pg 27-31 Lymphocytes (%) (Auto) 37.3 % Hemoglobin 15.1 g/dL 14.0-18.0 Hematocrit 45 % 42-52 Eosinophils (%) (Auto) 4.1 % Basophils (%) (Auto) 0.7 % Absolute Neutrophils (auto) 2.5 10^3/ul 1.5-7.7 Absolute Monocytes (auto) 0.6 10^3/ul 0-0.8 Absolute Lymphocytes (auto) 2.0 10^3/ul 1.0-4.8 Absolute Eosinophils (auto) 0.2 10^3/ul 0-0.6 Absolute Basophils (auto) 0.0 10^3/ul 0-0.2 Laboratory Studies 04/05/2019 N2N/CCD Import White Blood 5.4 10^3/uL 3.5 -10.8 Count Red Cell Distribution Width 14 % 10-15 Red Blood Count 5.08 10^6/uL 4.18-5.48 Platelet Count 225 10^3/uL 150-450 Nucleated Red Blood Cells % 0.3 Nucleated RBC Absolute Count (auto) 0.0 10^3/ul Neutrophils (%) (Auto) 46.1 % Monocytes (%) (Auto) 11.8 % Mean Platelet Volume 8.6 fL 7.4-10.4 Mean Corpuscular Volume 89 fL 80-94 Mean Corpuscular Hemoglobin Concent 34 g/dL 31-36 Mean Corpuscular Hemoglobin 30 pg 27-31 Lymphocytes (%) (Auto) 37.3 % Hemoglobin 15.1 g/dL 14.0-18.0 Hematocrit 45 % 42-52 Eosinophils (%) (Auto) 4.1 % Basophils (%) (Auto) 0.7 % Absolute Neutrophils (auto) 2.5 10^3/ul 1.5-7.7 Absolute Monocytes (auto) 0.6 10^3/ul 0-0.8 Absolute Lymphocytes (auto) 2.0 10^3/ul 1.0-4.8 Absolute Eosinophils (auto) 0.2 10^3/ul 0-0.6 Absolute Basophils (auto) 0.0 10^3/ul 0-0.2 Laboratory Studies 04/05/2019 N2N/CCD Import Alanine Aminotransferase 26 U/ L 7-52 (Alt/SGPT) White Blood Count 5.4 10^3/uL 3.5-10.8 Red Cell Distribution Width 14 % 10-15 Red Blood Count 5.08 10^6/uL 4.18-5.48 Platelet Count 225 10^3/uL 150-450 Nucleated Red Blood Cells % 0.3 Nucleated RBC Absolute Count (auto) 0.0 10^3/ul Neutrophils (%) (Auto) 46.1 % Monocytes (%) (Auto) 11.8 % Mean Platelet Volume 8.6 fL 7.4-10.4 Mean Corpuscular Volume 89 fL 80-94 Mean Corpuscular Hemoglobin Concent 34 g/dL 31-36 Mean Corpuscular Hemoglobin 30 pg 27-31 Lymphocytes (%) (Auto) 37.3 % Hemoglobin 15.1 g/dL 14.0-18.0 Hematocrit 45 % 42-52 Eosinophils (%) (Auto) 4.1 % Basophils (%) (Auto) 0.7 % Absolute Neutrophils (auto) 2.5 10^3/ul 1.5-7.7 Absolute Monocytes (auto) 0.6 10^3/ul 0-0.8 Absolute Lymphocytes (auto) 2.0 10^3/ul 1.0-4.8 Absolute Eosinophils (auto) 0.2 10^3/ul 0-0.6 Absolute Basophils (auto) 0.0 10^3/ul 0-0.2 Laboratory Studies 04/05/2019 N2N/CCD Import Albumin 4.5 g/dL 3.2-5.2 Alanine Aminotransferase (Alt/SGPT) 26 U/L 7-52 White Blood Count 5.4 10^3/uL 3.5-10.8 Red Cell Distribution Width 14 % 10-15 Red Blood Count 5.08 10^6/uL 4.18-5.48 Platelet Count 225 10^3/uL 150-450 Nucleated Red Blood Cells % 0.3 Nucleated RBC Absolute Count (auto) 0.0 10^3/ul Neutrophils (%) (Auto) 46.1 % Monocytes (%) (Auto) 11.8 % Mean Platelet Volume 8.6 fL 7.4-10.4 Mean Corpuscular Volume 89 fL 80-94 Mean Corpuscular Hemoglobin Concent 34 g/dL 31-36 Mean Corpuscular Hemoglobin 30 pg 27-31 Lymphocytes (%) (Auto) 37.3 % Hemoglobin 15.1 g/dL 14.0-18.0 Hematocrit 45 % 42-52 Eosinophils (%) (Auto) 4.1 % Basophils (%) (Auto) 0.7 % Absolute Neutrophils (auto) 2.5 10^3/ul 1.5-7.7 Absolute Monocytes (auto) 0.6 10^3/ul 0-0.8 Absolute Lymphocytes (auto) 2.0 10^3/ul 1.0-4.8 Absolute Eosinophils (auto) 0.2 10^3/ul 0-0.6 Absolute Basophils (auto) 0.0 10^3/ul 0-0.2 Laboratory Studies 04/05/2019 N2N/[place] Import Albumin/Globulin Ratio 1.8 1-3 Albumin 4.5 g/dL 3.2-5.2 Alanine Aminotransferase (Alt/SGPT) 26 U/L 7-52 White Blood Count 5.4 10^3/uL 3.5-10.8 Red Cell Distribution Width 14 % 10-15 Red Blood Count 5.08 10^6/uL 4.18-5.48 Platelet Count 225 10^3/uL 150-450 Nucleated Red Blood Cells % 0.3 Nucleated RBC Absolute Count (auto) 0.0 10^3/ul Neutrophils (%) (Auto) 46.1 % Monocytes (%) (Auto) 11.8 % Mean Platelet Volume 8.6 fL 7.4-10.4 Mean Corpuscular Volume 89 fL 80-94 Mean Corpuscular Hemoglobin Concent 34 g/dL 31-36 Mean Corpuscular Hemoglobin 30 pg 27-31 Lymphocytes (%) (Auto) 37.3 % Hemoglobin 15.1 g/dL 14.0-18.0 Hematocrit 45 % 42-52 Eosinophils (%) (Auto) 4.1 % Basophils (%) (Auto) 0.7 % Absolute Neutrophils (auto) 2.5 10^3/ul 1.5-7.7 Absolute Monocytes (auto) 0.6 10^3/ul 0-0.8 Absolute Lymphocytes (auto) 2.0 10^3/ul 1.0-4.8 Absolute Eosinophils (auto) 0.2 10^3/ul 0-0.6 Absolute Basophils (auto) 0.0 10^3/ul 0-0.2 Laboratory Studies 04/05/2019 N2N/CCD Import Mean Corpuscular Volume 89 fL 80-94 Mean Corpuscular Hemoglobin Concent 34 g/dL 31-36 Mean Corpuscular Hemoglobin 30 pg 27-31 Lymphocytes (%) (Auto) 37.3 % Hemoglobin 15.1 g/dL 14.0-18.0 Hematocrit 45 % 42-52 Eosinophils (%) (Auto) 4.1 % Basophils (%) (Auto) 0.7 % Absolute Neutrophils (auto) 2.5 10^3/ul 1.5-7.7 Absolute Monocytes (auto) 0.6 10^3/ul 0-0.8 Absolute Lymphocytes (auto) 2.0 10^3/ul 1.0-4.8 Absolute Eosinophils (auto) 0.2 10^3/ul 0-0.6 Absolute Basophils (auto) 0.0 10^3/ul 0-0.2 Laboratory Studies 04/05/2019 N2N/CCD Import Mean Corpuscular 34 g/dL 31 -36 Hemoglobin Concent Mean Corpuscular Hemoglobin 30 pg 27-31 Lymphocytes (%) (Auto) 37.3 % Hemoglobin 15.1 g/dL 14.0-18.0 Hematocrit 45 % 42-52 Eosinophils (%) (Auto) 4.1 % Basophils (%) (Auto) 0.7 % Absolute Neutrophils (auto) 2.5 10^3/ul 1.5-7.7 Absolute Monocytes (auto) 0.6 10^3/ul 0-0.8 Absolute Lymphocytes (auto) 2.0 10^3/ul 1.0-4.8 Absolute Eosinophils (auto) 0.2 10^3/ul 0-0.6 Absolute Basophils (auto) 0.0 10^3/ul 0-0.2 Laboratory Studies 04/05/2019 N2N/CCD Import Mean Corpuscular 30 pg 27- 31 Hemoglobin Lymphocytes (%) (Auto) 37.3 % Hemoglobin 15.1 g/dL 14.0-18.0 Hematocrit 45 % 42-52 Eosinophils (%) (Auto) 4.1 % Basophils (%) (Auto) 0.7 % Absolute Neutrophils (auto) 2.5 10^3/ul 1.5-7.7 Absolute Monocytes (auto) 0.6 10^3/ul 0-0.8 Absolute Lymphocytes (auto) 2.0 10^3/ul 1.0-4.8 Absolute Eosinophils (auto) 0.2 10^3/ul 0-0.6 Absolute Basophils (auto) 0.0 10^3/ul 0-0.2 Laboratory Studies 04/05/2019 N2N/CCD Import Lymphocytes (%) (Auto) 37.3 % Hemoglobin 15.1 g/dL 14.0-18.0 Hematocrit 45 % 42-52 Eosinophils (%) (Auto) 4.1 % Basophils (%) (Auto) 0.7 % Absolute Neutrophils (auto) 2.5 10^3/ul 1.5-7.7 Absolute Monocytes (auto) 0.6 10^3/ul 0-0.8 Absolute Lymphocytes (auto) 2.0 10^3/ul 1.0-4.8 Absolute Eosinophils (auto) 0.2 10^3/ul 0-0.6 Absolute Basophils (auto) 0.0 10^3/ul 0-0.2 Laboratory Studies 04/05/2019 N2N/[place] Import Hemoglobin 15.1 g/dL 14.0- 18.0 Hematocrit 45 % 42-52 Eosinophils (%) (Auto) 4.1 % Basophils (%) (Auto) 0.7 % Absolute Neutrophils (auto) 2.5 10^3/ul 1.5-7.7 Absolute Monocytes (auto) 0.6 10^3/ul 0-0.8 Absolute Lymphocytes (auto) 2.0 10^3/ul 1.0-4.8 Absolute Eosinophils (auto) 0.2 10^3/ul 0-0.6 Absolute Basophils (auto) 0.0 10^3/ul 0-0.2 Laboratory Studies 04/05/2019 N2N/CCD Import Hematocrit 45 % 42-52 Eosinophils (%) (Auto) 4.1 % Basophils (%) (Auto) 0.7 % Absolute Neutrophils (auto) 2.5 10^3/ul 1.5-7.7 Absolute Monocytes (auto) 0.6 10^3/ul 0-0.8 Absolute Lymphocytes (auto) 2.0 10^3/ul 1.0-4.8 Absolute Eosinophils (auto) 0.2 10^3/ul 0-0.6 Absolute Basophils (auto) 0.0 10^3/ul 0-0.2 Laboratory Studies 04/05/2019 N2N/CCD Import Eosinophils (%) (Auto) 4.1 % Basophils (%) (Auto) 0.7 % Absolute Neutrophils (auto) 2.5 10^3/ul 1.5-7.7 Absolute Monocytes (auto) 0.6 10^3/ul 0-0.8 Absolute Lymphocytes (auto) 2.0 10^3/ul 1.0-4.8 Absolute Eosinophils (auto) 0.2 10^3/ul 0-0.6 Absolute Basophils (auto) 0.0 10^3/ul 0-0.2 Laboratory Studies 04/05/2019 N2N/CCD Import Basophils (%) (Auto) 0.7 % Absolute Neutrophils (auto) 2.5 10^3/ul 1.5-7.7 Absolute Monocytes (auto) 0.6 10^3/ul 0-0.8 Absolute Lymphocytes (auto) 2.0 10^3/ul 1.0-4.8 Absolute Eosinophils (auto) 0.2 10^3/ul 0-0.6 Absolute Basophils (auto) 0.0 10^3/ul 0-0.2 Laboratory Studies 04/05/2019 N2N/CCD Import Absolute 2.5 10^3/ul 1.5- 7.7 Neutrophils (auto) Absolute Monocytes (auto) 0.6 10^3/ul 0-0.8 Absolute Lymphocytes (auto) 2.0 10^3/ul 1.0-4.8 Absolute Eosinophils (auto) 0.2 10^3/ul 0-0.6 Absolute Basophils (auto) 0.0 10^3/ul 0-0.2 Laboratory Studies 04/05/2019 N2N/CCD Import Absolute Monocytes 0.6 10^3/ ul 0-0.8 (auto) Absolute Lymphocytes (auto) 2.0 10^3/ul 1.0-4.8 Absolute Eosinophils (auto) 0.2 10^3/ul 0-0.6 Absolute Basophils (auto) 0.0 10^3/ul 0-0.2 Laboratory Studies 04/05/2019 N2N/CCD Import Absolute 2.0 10^3/ul 1.0- 4.8 Lymphocytes (auto) Absolute Eosinophils (auto) 0.2 10^3/ul 0-0.6 Absolute Basophils (auto) 0.0 10^3/ul 0-0.2 Laboratory Studies 04/05/2019 N2N/CCD Import Absolute 0.2 10^3/ul 0-0.6 Eosinophils (auto) Absolute Basophils (auto) 0.0 10^3/ul 0-0.2 Laboratory Studies 04/05/2019 N2N/CCD Import Absolute Basophils 0.0 10^3/ ul 0-0.2 (auto) Laboratory Studies 04/05/2019 N2N/CCD Import Urine pH 5.0 5-9 Urine Specific [place] 1.033 High 1.010-1.030 Laboratory 04/05/2019 N2N/CCD Import Urine Specific 1.033 High 1.010- 1.030 Studies [place] [facility] 04/05/2019 N2N/CCD Import B-Type 25` pg/mL Studies Natriuretic Peptide International Ratio (Anticoag Ther) 0.97 0.82-1.09 Activated Partial Thromboplast Time 34.4 seconds 26.0-38.0 Lactic Acid Level 1.0 mmol/L 0.5-2.0 Total Protein 7.0 g/dL 6.4-8.9 Total Creatine Kinase 264 U/L High 10-223 Total Bilirubin 0.90 mg/dL 0.2-1.0 Sodium Level 139 mmol/L 135-145 Potassium Level 4.3 mmol/L 3.5-5.0 Lipase 50 U/L 11.0-82.0 Glucose Level 99 mg/dL 70-100 Globulin 2.5 g/dL 2-4 Estimated GFR (Non- 79.2 Estimated GFR () 95.9 Creatinine 0.97 mg/dL 0.67-1.17 Chloride Level 108 mmol/L 101-111 Carbon Dioxide Level 26 mmol/L 22-32 Calcium Level 9.1 mg/dL 8.6-10.3 C-Reactive Protein 2.16 mg/L 0-8.00 Blood Urea Nitrogen 28 mg/dL High 6-24 BUN/Creatinine Ratio 28.9 High 8-20 Aspartate Amino Transf (Ast/Sgot) 21 U/L 13-39 Anion Gap 5 mmol/L 2-11 Alkaline Phosphatase 44 U/L 34-104 Albumin/Globulin Ratio 1.8 1-3 Albumin 4.5 g/dL 3.2-5.2 Alanine Aminotransferase (Alt/SGPT) 26 U/L 7-52 White Blood Count 5.4 10^3/uL 3.5-10.8 Red Cell Distribution Width 14 % 10-15 Red Blood Count 5.08 10^6/uL 4.18-5.48 Platelet Count 225 10^3/uL 150-450 Nucleated Red Blood Cells % 0.3 Nucleated RBC Absolute Count (auto) 0.0 10^3/ul Neutrophils (%) (Auto) 46.1 % Monocytes (%) (Auto) 11.8 % Mean Platelet Volume 8.6 fL 7.4-10.4 Mean Corpuscular Volume 89 fL 80-94 Mean Corpuscular Hemoglobin Concent 34 g/dL 31-36 Mean Corpuscular Hemoglobin 30 pg 27-31 Lymphocytes (%) (Auto) 37.3 % Hemoglobin 15.1 g/dL 14.0-18.0 Hematocrit 45 % 42-52 Eosinophils (%) (Auto) 4.1 % Basophils (%) (Auto) 0.7 % Absolute Neutrophils (auto) 2.5 10^3/ul 1.5-7.7 Absolute Monocytes (auto) 0.6 10^3/ul 0-0.8 Absolute Lymphocytes (auto) 2.0 10^3/ul 1.0-4.8 Absolute Eosinophils (auto) 0.2 10^3/ul 0-0.6 Absolute Basophils (auto) 0.0 10^3/ul 0-0.2 Laboratory Studies 04/05/2019 N2N/CCD Import International Ratio 0.97 0.82-1.09 (Anticoag Ther) Activated Partial Thromboplast Time 34.4 seconds 26.0-38.0 Lactic Acid Level 1.0 mmol/L 0.5-2.0 Total Protein 7.0 g/dL 6.4-8.9 Total Creatine Kinase 264 U/L High 10-223 Total Bilirubin 0.90 mg/dL 0.2-1.0 Sodium Level 139 mmol/L 135-145 Potassium Level 4.3 mmol/L 3.5-5.0 Lipase 50 U/L 11.0-82.0 Glucose Level 99 mg/dL 70-100 Globulin 2.5 g/dL 2-4 Estimated GFR (Non- 79.2 Estimated GFR () 95.9 Creatinine 0.97 mg/dL 0.67-1.17 Chloride Level 108 mmol/L 101-111 Carbon Dioxide Level 26 mmol/L 22-32 Calcium Level 9.1 mg/dL 8.6-10.3 C-Reactive Protein 2.16 mg/L 0-8.00 Blood Urea Nitrogen 28 mg/dL High 6-24 BUN/Creatinine Ratio 28.9 High 8-20 Aspartate Amino Transf (Ast/Sgot) 21 U/L 13-39 Anion Gap 5 mmol/L 2-11 Alkaline Phosphatase 44 U/L 34-104 Albumin/Globulin Ratio 1.8 1-3 Albumin 4.5 g/dL 3.2-5.2 Alanine Aminotransferase (Alt/SGPT) 26 U/L 7-52 White Blood Count 5.4 10^3/uL 3.5-10.8 Red Cell Distribution Width 14 % 10-15 Red Blood Count 5.08 10^6/uL 4.18-5.48 Platelet Count 225 10^3/uL 150-450 Nucleated Red Blood Cells % 0.3 Nucleated RBC Absolute Count (auto) 0.0 10^3/ul Neutrophils (%) (Auto) 46.1 % Monocytes (%) (Auto) 11.8 % Mean Platelet Volume 8.6 fL 7.4-10.4 Mean Corpuscular Volume 89 fL 80-94 Mean Corpuscular Hemoglobin Concent 34 g/dL 31-36 Mean Corpuscular Hemoglobin 30 pg 27-31 Lymphocytes (%) (Auto) 37.3 % Hemoglobin 15.1 g/dL 14.0-18.0 Hematocrit 45 % 42-52 Eosinophils (%) (Auto) 4.1 % Basophils (%) (Auto) 0.7 % Absolute Neutrophils (auto) 2.5 10^3/ul 1.5-7.7 Absolute Monocytes (auto) 0.6 10^3/ul 0-0.8 Absolute Lymphocytes (auto) 2.0 10^3/ul 1.0-4.8 Absolute Eosinophils (auto) 0.2 10^3/ul 0-0.6 Absolute Basophils (auto) 0.0 10^3/ul 0-0.2 Laboratory 04/05/2019 N2N/CCD Import Activated Partial 34.4 seconds 26.0 -38.0 Studies Thromboplast Time Lactic Acid Level 1.0 mmol/L 0.5-2.0 Total Protein 7.0 g/dL 6.4-8.9 Total Creatine Kinase 264 U/L High 10-223 Total Bilirubin 0.90 mg/dL 0.2-1.0 Sodium Level 139 mmol/L 135-145 Potassium Level 4.3 mmol/L 3.5-5.0 Lipase 50 U/L 11.0-82.0 Glucose Level 99 mg/dL 70-100 Globulin 2.5 g/dL 2-4 Estimated GFR (Non- 79.2 Estimated GFR () 95.9 Creatinine 0.97 mg/dL 0.67-1.17 Chloride Level 108 mmol/L 101-111 Carbon Dioxide Level 26 mmol/L 22-32 Calcium Level 9.1 mg/dL 8.6-10.3 C-Reactive Protein 2.16 mg/L 0-8.00 Blood Urea Nitrogen 28 mg/dL High 6-24 BUN/Creatinine Ratio 28.9 High 8-20 Aspartate Amino Transf (Ast/Sgot) 21 U/L 13-39 Anion Gap 5 mmol/L 2-11 Alkaline Phosphatase 44 U/L 34-104 Albumin/Globulin Ratio 1.8 1-3 Albumin 4.5 g/dL 3.2-5.2 Alanine Aminotransferase (Alt/SGPT) 26 U/L 7-52 White Blood Count 5.4 10^3/uL 3.5-10.8 Red Cell Distribution Width 14 % 10-15 Red Blood Count 5.08 10^6/uL 4.18-5.48 Platelet Count 225 10^3/uL 150-450 Nucleated Red Blood Cells % 0.3 Nucleated RBC Absolute Count (auto) 0.0 10^3/ul Neutrophils (%) (Auto) 46.1 % Monocytes (%) (Auto) 11.8 % Mean Platelet Volume 8.6 fL 7.4-10.4 Mean Corpuscular Volume 89 fL 80-94 Mean Corpuscular Hemoglobin Concent 34 g/dL 31-36 Mean Corpuscular Hemoglobin 30 pg 27-31 Lymphocytes (%) (Auto) 37.3 % Hemoglobin 15.1 g/dL 14.0-18.0 Hematocrit 45 % 42-52 Eosinophils (%) (Auto) 4.1 % Basophils (%) (Auto) 0.7 % Absolute Neutrophils (auto) 2.5 10^3/ul 1.5-7.7 Absolute Monocytes (auto) 0.6 10^3/ul 0-0.8 Absolute Lymphocytes (auto) 2.0 10^3/ul 1.0-4.8 Absolute Eosinophils (auto) 0.2 10^3/ul 0-0.6 Absolute Basophils (auto) 0.0 10^3/ul 0-0.2 Laboratory Studies 04/05/2019 [id number]/CCD Import Lactic Acid Level 1.0 mmol/L 0.5-2.0 Total Protein 7.0 g/dL 6.4-8.9 Total Creatine Kinase 264 U/L High 10-223 Total Bilirubin 0.90 mg/dL 0.2-1.0 Sodium Level 139 mmol/L 135-145 Potassium Level 4.3 mmol/L 3.5-5.0 Lipase 50 U/L 11.0-82.0 Glucose Level 99 mg/dL 70-100 Globulin 2.5 g/dL 2-4 Estimated GFR (Non- 79.2 Estimated GFR () 95.9 Creatinine 0.97 mg/dL 0.67-1.17 Chloride Level 108 mmol/L 101-111 Carbon Dioxide Level 26 mmol/L 22-32 Calcium Level 9.1 mg/dL 8.6-10.3 C-Reactive Protein 2.16 mg/L 0-8.00 Blood Urea Nitrogen 28 mg/dL High 6-24 BUN/Creatinine Ratio 28.9 High 8-20 Aspartate Amino Transf (Ast/Sgot) 21 U/L 13-39 Anion Gap 5 mmol/L 2-11 Alkaline Phosphatase 44 U/L 34-104 Albumin/Globulin Ratio 1.8 1-3 Albumin 4.5 g/dL 3.2-5.2 Alanine Aminotransferase (Alt/SGPT) 26 U/L 7-52 White Blood Count 5.4 10^3/uL 3.5-10.8 Red Cell Distribution Width 14 % 10-15 Red Blood Count 5.08 10^6/uL 4.18-5.48 Platelet Count 225 10^3/uL 150-450 Nucleated Red Blood Cells % 0.3 Nucleated RBC Absolute Count (auto) 0.0 10^3/ul Neutrophils (%) (Auto) 46.1 % Monocytes (%) (Auto) 11.8 % Mean Platelet Volume 8.6 fL 7.4-10.4 Mean Corpuscular Volume 89 fL 80-94 Mean Corpuscular Hemoglobin Concent 34 g/dL 31-36 Mean Corpuscular Hemoglobin 30 pg 27-31 Lymphocytes (%) (Auto) 37.3 % Hemoglobin 15.1 g/dL 14.0-18.0 Hematocrit 45 % 42-52 Eosinophils (%) (Auto) 4.1 % Basophils (%) (Auto) 0.7 % Absolute Neutrophils (auto) 2.5 10^3/ul 1.5-7.7 Absolute Monocytes (auto) 0.6 10^3/ul 0-0.8 Absolute Lymphocytes (auto) 2.0 10^3/ul 1.0-4.8 Absolute Eosinophils (auto) 0.2 10^3/ul 0-0.6 Absolute Basophils (auto) 0.0 10^3/ul 0-0.2 Laboratory Studies 04/05/2019 N2N/CCD Import Total Protein 7.0 g/dL 6.4- 8.9 Total Creatine Kinase 264 U/L High 10-223 Total Bilirubin 0.90 mg/dL 0.2-1.0 Sodium Level 139 mmol/L 135-145 Potassium Level 4.3 mmol/L 3.5-5.0 Lipase 50 U/L 11.0-82.0 Glucose Level 99 mg/dL 70-100 Globulin 2.5 g/dL 2-4 Estimated GFR (Non- 79.2 Estimated GFR () 95.9 Creatinine 0.97 mg/dL 0.67-1.17 Chloride Level 108 mmol/L 101-111 Carbon Dioxide Level 26 mmol/L 22-32 Calcium Level 9.1 mg/dL 8.6-10.3 C-Reactive Protein 2.16 mg/L 0-8.00 Blood Urea Nitrogen 28 mg/dL High 6-24 BUN/Creatinine Ratio 28.9 High 8-20 Aspartate Amino Transf (Ast/Sgot) 21 U/L 13-39 Anion Gap 5 mmol/L 2-11 Alkaline Phosphatase 44 U/L 34-104 Albumin/Globulin Ratio 1.8 1-3 Albumin 4.5 g/dL 3.2-5.2 Alanine Aminotransferase (Alt/SGPT) 26 U/L 7-52 White Blood Count 5.4 10^3/uL 3.5-10.8 Red Cell Distribution Width 14 % 10-15 Red Blood Count 5.08 10^6/uL 4.18-5.48 Platelet Count 225 10^3/uL 150-450 Nucleated Red Blood Cells % 0.3 Nucleated RBC Absolute Count (auto) 0.0 10^3/ul Neutrophils (%) (Auto) 46.1 % Monocytes (%) (Auto) 11.8 % Mean Platelet Volume 8.6 fL 7.4-10.4 Mean Corpuscular Volume 89 fL 80-94 Mean Corpuscular Hemoglobin Concent 34 g/dL 31-36 Mean Corpuscular Hemoglobin 30 pg 27-31 Lymphocytes (%) (Auto) 37.3 % Hemoglobin 15.1 g/dL 14.0-18.0 Hematocrit 45 % 42-52 Eosinophils (%) (Auto) 4.1 % Basophils (%) (Auto) 0.7 % Absolute Neutrophils (auto) 2.5 10^3/ul 1.5-7.7 Absolute Monocytes (auto) 0.6 10^3/ul 0-0.8 Absolute Lymphocytes (auto) 2.0 10^3/ul 1.0-4.8 Absolute Eosinophils (auto) 0.2 10^3/ul 0-0.6 Absolute Basophils (auto) 0.0 10^3/ul 0-0.2 Laboratory Studies 04/05/2019 N2N/CCD Import Total Creatine 264 U/L High 10-223 Kinase Total Bilirubin 0.90 mg/dL 0.2-1.0 Sodium Level 139 mmol/L 135-145 Potassium Level 4.3 mmol/L 3.5-5.0 Lipase 50 U/L 11.0-82.0 Glucose Level 99 mg/dL 70-100 Globulin 2.5 g/dL 2-4 Estimated GFR (Non- 79.2 Estimated GFR () 95.9 Creatinine 0.97 mg/dL 0.67-1.17 Chloride Level 108 mmol/L 101-111 Carbon Dioxide Level 26 mmol/L 22-32 Calcium Level 9.1 mg/dL 8.6-10.3 C-Reactive Protein 2.16 mg/L 0-8.00 Blood Urea Nitrogen 28 mg/dL High 6-24 BUN/Creatinine Ratio 28.9 High 8-20 Aspartate Amino Transf (Ast/Sgot) 21 U/L 13-39 Anion Gap 5 mmol/L 2-11 Alkaline Phosphatase 44 U/L 34-104 Albumin/Globulin Ratio 1.8 1-3 Albumin 4.5 g/dL 3.2-5.2 Alanine Aminotransferase (Alt/SGPT) 26 U/L 7-52 White Blood Count 5.4 10^3/uL 3.5-10.8 Red Cell Distribution Width 14 % 10-15 Red Blood Count 5.08 10^6/uL 4.18-5.48 Platelet Count 225 10^3/uL 150-450 Nucleated Red Blood Cells % 0.3 Nucleated RBC Absolute Count (auto) 0.0 10^3/ul Neutrophils (%) (Auto) 46.1 % Monocytes (%) (Auto) 11.8 % Mean Platelet Volume 8.6 fL 7.4-10.4 Mean Corpuscular Volume 89 fL 80-94 Mean Corpuscular Hemoglobin Concent 34 g/dL 31-36 Mean Corpuscular Hemoglobin 30 pg 27-31 Lymphocytes (%) (Auto) 37.3 % Hemoglobin 15.1 g/dL 14.0-18.0 Hematocrit 45 % 42-52 Eosinophils (%) (Auto) 4.1 % Basophils (%) (Auto) 0.7 % Absolute Neutrophils (auto) 2.5 10^3/ul 1.5-7.7 Absolute Monocytes (auto) 0.6 10^3/ul 0-0.8 Absolute Lymphocytes (auto) 2.0 10^3/ul 1.0-4.8 Absolute Eosinophils (auto) 0.2 10^3/ul 0-0.6 Absolute Basophils (auto) 0.0 10^3/ul 0-0.2 Laboratory Studies 04/05/2019 N2N/CCD Import Total Bilirubin 0.90 mg/dL 0.2-1.0 Sodium Level 139 mmol/L 135-145 Potassium Level 4.3 mmol/L 3.5-5.0 Lipase 50 U/L 11.0-82.0 Glucose Level 99 mg/dL 70-100 Globulin 2.5 g/dL 2-4 Estimated GFR (Non- 79.2 Estimated GFR () 95.9 Creatinine 0.97 mg/dL 0.67-1.17 Chloride Level 108 mmol/L 101-111 Carbon Dioxide Level 26 mmol/L 22-32 Calcium Level 9.1 mg/dL 8.6-10.3 C-Reactive Protein 2.16 mg/L 0-8.00 Blood Urea Nitrogen 28 mg/dL High 6-24 BUN/Creatinine Ratio 28.9 High 8-20 Aspartate Amino Transf (Ast/Sgot) 21 U/L 13-39 Anion Gap 5 mmol/L 2-11 Alkaline Phosphatase 44 U/L 34-104 Albumin/Globulin Ratio 1.8 1-3 Albumin 4.5 g/dL 3.2-5.2 Alanine Aminotransferase (Alt/SGPT) 26 U/L 7-52 White Blood Count 5.4 10^3/uL 3.5-10.8 Red Cell Distribution Width 14 % 10-15 Red Blood Count 5.08 10^6/uL 4.18-5.48 Platelet Count 225 10^3/uL 150-450 Nucleated Red Blood Cells % 0.3 Nucleated RBC Absolute Count (auto) 0.0 10^3/ul Neutrophils (%) (Auto) 46.1 % Monocytes (%) (Auto) 11.8 % Mean Platelet Volume 8.6 fL 7.4-10.4 Mean Corpuscular Volume 89 fL 80-94 Mean Corpuscular Hemoglobin Concent 34 g/dL 31-36 Mean Corpuscular Hemoglobin 30 pg 27-31 Lymphocytes (%) (Auto) 37.3 % Hemoglobin 15.1 g/dL 14.0-18.0 Hematocrit 45 % 42-52 Eosinophils (%) (Auto) 4.1 % Basophils (%) (Auto) 0.7 % Absolute Neutrophils (auto) 2.5 10^3/ul 1.5-7.7 Absolute Monocytes (auto) 0.6 10^3/ul 0-0.8 Absolute Lymphocytes (auto) 2.0 10^3/ul 1.0-4.8 Absolute Eosinophils (auto) 0.2 10^3/ul 0-0.6 Absolute Basophils (auto) 0.0 10^3/ul 0-0.2 Laboratory Studies 04/05/2019 N2N/CCD Import Sodium Level 139 mmol/L 135 -145 Potassium Level 4.3 mmol/L 3.5-5.0 Lipase 50 U/L 11.0-82.0 Glucose Level 99 mg/dL 70-100 Globulin 2.5 g/dL 2-4 Estimated GFR (Non- 79.2 Estimated GFR () 95.9 Creatinine 0.97 mg/dL 0.67-1.17 Chloride Level 108 mmol/L 101-111 Carbon Dioxide Level 26 mmol/L 22-32 Calcium Level 9.1 mg/dL 8.6-10.3 C-Reactive Protein 2.16 mg/L 0-8.00 Blood Urea Nitrogen 28 mg/dL High 6-24 BUN/Creatinine Ratio 28.9 High 8-20 Aspartate Amino Transf (Ast/Sgot) 21 U/L 13-39 Anion Gap 5 mmol/L 2-11 Alkaline Phosphatase 44 U/L 34-104 Albumin/Globulin Ratio 1.8 1-3 Albumin 4.5 g/dL 3.2-5.2 Alanine Aminotransferase (Alt/SGPT) 26 U/L 7-52 White Blood Count 5.4 10^3/uL 3.5-10.8 Red Cell Distribution Width 14 % 10-15 Red Blood Count 5.08 10^6/uL 4.18-5.48 Platelet Count 225 10^3/uL 150-450 Nucleated Red Blood Cells % 0.3 Nucleated RBC Absolute Count (auto) 0.0 10^3/ul Neutrophils (%) (Auto) 46.1 % Monocytes (%) (Auto) 11.8 % Mean Platelet Volume 8.6 fL 7.4-10.4 Mean Corpuscular Volume 89 fL 80-94 Mean Corpuscular Hemoglobin Concent 34 g/dL 31-36 Mean Corpuscular Hemoglobin 30 pg 27-31 Lymphocytes (%) (Auto) 37.3 % Hemoglobin 15.1 g/dL 14.0-18.0 Hematocrit 45 % 42-52 Eosinophils (%) (Auto) 4.1 % Basophils (%) (Auto) 0.7 % Absolute Neutrophils (auto) 2.5 10^3/ul 1.5-7.7 Absolute Monocytes (auto) 0.6 10^3/ul 0-0.8 Absolute Lymphocytes (auto) 2.0 10^3/ul 1.0-4.8 Absolute Eosinophils (auto) 0.2 10^3/ul 0-0.6 Absolute Basophils (auto) 0.0 10^3/ul 0-0.2 Laboratory Studies 04/05/2019 N2N/CCD Import Potassium Level 4.3 mmol/L 3.5-5.0 Lipase 50 U/L 11.0-82.0 Glucose Level 99 mg/dL 70-100 Globulin 2.5 g/dL 2-4 Estimated GFR (Non- 79.2 Estimated GFR () 95.9 Creatinine 0.97 mg/dL 0.67-1.17 Chloride Level 108 mmol/L 101-111 Carbon Dioxide Level 26 mmol/L 22-32 Calcium Level 9.1 mg/dL 8.6-10.3 C-Reactive Protein 2.16 mg/L 0-8.00 Blood Urea Nitrogen 28 mg/dL High 6-24 BUN/Creatinine Ratio 28.9 High 8-20 Aspartate Amino Transf (Ast/Sgot) 21 U/L 13-39 Anion Gap 5 mmol/L 2-11 Alkaline Phosphatase 44 U/L 34-104 Albumin/Globulin Ratio 1.8 1-3 Albumin 4.5 g/dL 3.2-5.2 Alanine Aminotransferase (Alt/SGPT) 26 U/L 7-52 White Blood Count 5.4 10^3/uL 3.5-10.8 Red Cell Distribution Width 14 % 10-15 Red Blood Count 5.08 10^6/uL 4.18-5.48 Platelet Count 225 10^3/uL 150-450 Nucleated Red Blood Cells % 0.3 Nucleated RBC Absolute Count (auto) 0.0 10^3/ul Neutrophils (%) (Auto) 46.1 % Monocytes (%) (Auto) 11.8 % Mean Platelet Volume 8.6 fL 7.4-10.4 Mean Corpuscular Volume 89 fL 80-94 Mean Corpuscular Hemoglobin Concent 34 g/dL 31-36 Mean Corpuscular Hemoglobin 30 pg 27-31 Lymphocytes (%) (Auto) 37.3 % Hemoglobin 15.1 g/dL 14.0-18.0 Hematocrit 45 % 42-52 Eosinophils (%) (Auto) 4.1 % Basophils (%) (Auto) 0.7 % Absolute Neutrophils (auto) 2.5 10^3/ul 1.5-7.7 Absolute Monocytes (auto) 0.6 10^3/ul 0-0.8 Absolute Lymphocytes (auto) 2.0 10^3/ul 1.0-4.8 Absolute Eosinophils (auto) 0.2 10^3/ul 0-0.6 Absolute Basophils (auto) 0.0 10^3/ul 0-0.2 Laboratory Studies 04/05/2019 N2N/CCD Import Lipase 50 U/L 11.0-82.0 Glucose Level 99 mg/dL 70-100 Globulin 2.5 g/dL 2-4 Estimated GFR (Non- 79.2 Estimated GFR () 95.9 Creatinine 0.97 mg/dL 0.67-1.17 Chloride Level 108 mmol/L 101-111 Carbon Dioxide Level 26 mmol/L 22-32 Calcium Level 9.1 mg/dL 8.6-10.3 C-Reactive Protein 2.16 mg/L 0-8.00 Blood Urea Nitrogen 28 mg/dL High 6-24 BUN/Creatinine Ratio 28.9 High 8-20 Aspartate Amino Transf (Ast/Sgot) 21 U/L 13-39 Anion Gap 5 mmol/L 2-11 Alkaline Phosphatase 44 U/L 34-104 Albumin/Globulin Ratio 1.8 1-3 Albumin 4.5 g/dL 3.2-5.2 Alanine Aminotransferase (Alt/SGPT) 26 U/L 7-52 White Blood Count 5.4 10^3/uL 3.5-10.8 Red Cell Distribution Width 14 % 10-15 Red Blood Count 5.08 10^6/uL 4.18-5.48 Platelet Count 225 10^3/uL 150-450 Nucleated Red Blood Cells % 0.3 Nucleated RBC Absolute Count (auto) 0.0 10^3/ul Neutrophils (%) (Auto) 46.1 % Monocytes (%) (Auto) 11.8 % Mean Platelet Volume 8.6 fL 7.4-10.4 Mean Corpuscular Volume 89 fL 80-94 Mean Corpuscular Hemoglobin Concent 34 g/dL 31-36 Mean Corpuscular Hemoglobin 30 pg 27-31 Lymphocytes (%) (Auto) 37.3 % Hemoglobin 15.1 g/dL 14.0-18.0 Hematocrit 45 % 42-52 Eosinophils (%) (Auto) 4.1 % Basophils (%) (Auto) 0.7 % Absolute Neutrophils (auto) 2.5 10^3/ul 1.5-7.7 Absolute Monocytes (auto) 0.6 10^3/ul 0-0.8 Absolute Lymphocytes (auto) 2.0 10^3/ul 1.0-4.8 Absolute Eosinophils (auto) 0.2 10^3/ul 0-0.6 Absolute Basophils (auto) 0.0 10^3/ul 0-0.2 Laboratory Studies 04/05/2019 N2N/CCD Import Glucose Level 99 mg/dL 70- 100 Globulin 2.5 g/dL 2-4 Estimated GFR (Non- 79.2 Estimated GFR () 95.9 Creatinine 0.97 mg/dL 0.67-1.17 Chloride Level 108 mmol/L 101-111 Carbon Dioxide Level 26 mmol/L 22-32 Calcium Level 9.1 mg/dL 8.6-10.3 C-Reactive Protein 2.16 mg/L 0-8.00 Blood Urea Nitrogen 28 mg/dL High 6-24 BUN/Creatinine Ratio 28.9 High 8-20 Aspartate Amino Transf (Ast/Sgot) 21 U/L 13-39 Anion Gap 5 mmol/L 2-11 Alkaline Phosphatase 44 U/L 34-104 Albumin/Globulin Ratio 1.8 1-3 Albumin 4.5 g/dL 3.2-5.2 Alanine Aminotransferase (Alt/SGPT) 26 U/L 7-52 White Blood Count 5.4 10^3/uL 3.5-10.8 Red Cell Distribution Width 14 % 10-15 Red Blood Count 5.08 10^6/uL 4.18-5.48 Platelet Count 225 10^3/uL 150-450 Nucleated Red Blood Cells % 0.3 Nucleated RBC Absolute Count (auto) 0.0 10^3/ul Neutrophils (%) (Auto) 46.1 % Monocytes (%) (Auto) 11.8 % Mean Platelet Volume 8.6 fL 7.4-10.4 Mean Corpuscular Volume 89 fL 80-94 Mean Corpuscular Hemoglobin Concent 34 g/dL 31-36 Mean Corpuscular Hemoglobin 30 pg 27-31 Lymphocytes (%) (Auto) 37.3 % Hemoglobin 15.1 g/dL 14.0-18.0 Hematocrit 45 % 42-52 Eosinophils (%) (Auto) 4.1 % Basophils (%) (Auto) 0.7 % Absolute Neutrophils (auto) 2.5 10^3/ul 1.5-7.7 Absolute Monocytes (auto) 0.6 10^3/ul 0-0.8 Absolute Lymphocytes (auto) 2.0 10^3/ul 1.0-4.8 Absolute Eosinophils (auto) 0.2 10^3/ul 0-0.6 Absolute Basophils (auto) 0.0 10^3/ul 0-0.2 Laboratory Studies 04/05/2019 N2N/CCD Import Globulin 2.5 g/dL 2-4 Estimated GFR (Non- 79.2 Estimated GFR () 95.9 Creatinine 0.97 mg/dL 0.67-1.17 Chloride Level 108 mmol/L 101-111 Carbon Dioxide Level 26 mmol/L 22-32 Calcium Level 9.1 mg/dL 8.6-10.3 C-Reactive Protein 2.16 mg/L 0-8.00 Blood Urea Nitrogen 28 mg/dL High 6-24 BUN/Creatinine Ratio 28.9 High 8-20 Aspartate Amino Transf (Ast/Sgot) 21 U/L 13-39 Anion Gap 5 mmol/L 2-11 Alkaline Phosphatase 44 U/L 34-104 Albumin/Globulin Ratio 1.8 1-3 Albumin 4.5 g/dL 3.2-5.2 Alanine Aminotransferase (Alt/SGPT) 26 U/L 7-52 White Blood Count 5.4 10^3/uL 3.5-10.8 Red Cell Distribution Width 14 % 10-15 Red Blood Count 5.08 10^6/uL 4.18-5.48 Platelet Count 225 10^3/uL 150-450 Nucleated Red Blood Cells % 0.3 Nucleated RBC Absolute Count (auto) 0.0 10^3/ul Neutrophils (%) (Auto) 46.1 % Monocytes (%) (Auto) 11.8 % Mean Platelet Volume 8.6 fL 7.4-10.4 Mean Corpuscular Volume 89 fL 80-94 Mean Corpuscular Hemoglobin Concent 34 g/dL 31-36 Mean Corpuscular Hemoglobin 30 pg 27-31 Lymphocytes (%) (Auto) 37.3 % Hemoglobin 15.1 g/dL 14.0-18.0 Hematocrit 45 % 42-52 Eosinophils (%) (Auto) 4.1 % Basophils (%) (Auto) 0.7 % Absolute Neutrophils (auto) 2.5 10^3/ul 1.5-7.7 Absolute Monocytes (auto) 0.6 10^3/ul 0-0.8 Absolute Lymphocytes (auto) 2.0 10^3/ul 1.0-4.8 Absolute Eosinophils (auto) 0.2 10^3/ul 0-0.6 Absolute Basophils (auto) 0.0 10^3/ul 0-0.2 Laboratory Studies 04/05/2019 N2N/CCD Import Estimated GFR (Non- 79.2 [place] Estimated GFR () 95.9 Creatinine 0.97 mg/dL 0.67-1.17 Chloride Level 108 mmol/L 101-111 Carbon Dioxide Level 26 mmol/L 22-32 Calcium Level 9.1 mg/dL 8.6-10.3 C-Reactive Protein 2.16 mg/L 0-8.00 Blood Urea Nitrogen 28 mg/dL High 6-24 BUN/Creatinine Ratio 28.9 High 8-20 Aspartate Amino Transf (Ast/Sgot) 21 U/L 13-39 Anion Gap 5 mmol/L 2-11 Alkaline Phosphatase 44 U/L 34-104 Albumin/Globulin Ratio 1.8 1-3 Albumin 4.5 g/dL 3.2-5.2 Alanine Aminotransferase (Alt/SGPT) 26 U/L 7-52 White Blood Count 5.4 10^3/uL 3.5-10.8 Red Cell Distribution Width 14 % 10-15 Red Blood Count 5.08 10^6/uL 4.18-5.48 Platelet Count 225 10^3/uL 150-450 Nucleated Red Blood Cells % 0.3 Nucleated RBC Absolute Count (auto) 0.0 10^3/ul Neutrophils (%) (Auto) 46.1 % Monocytes (%) (Auto) 11.8 % Mean Platelet Volume 8.6 fL 7.4-10.4 Mean Corpuscular Volume 89 fL 80-94 Mean Corpuscular Hemoglobin Concent 34 g/dL 31-36 Mean Corpuscular Hemoglobin 30 pg 27-31 Lymphocytes (%) (Auto) 37.3 % Hemoglobin 15.1 g/dL 14.0-18.0 Hematocrit 45 % 42-52 Eosinophils (%) (Auto) 4.1 % Basophils (%) (Auto) 0.7 % Absolute Neutrophils (auto) 2.5 10^3/ul 1.5-7.7 Absolute Monocytes (auto) 0.6 10^3/ul 0-0.8 Absolute Lymphocytes (auto) 2.0 10^3/ul 1.0-4.8 Absolute Eosinophils (auto) 0.2 10^3/ul 0-0.6 Absolute Basophils (auto) 0.0 10^3/ul 0-0.2 Laboratory Studies 04/05/2019 N2N/CCD Import Estimated GFR ( 95.9 [place]) Creatinine 0.97 mg/dL 0.67-1.17 Chloride Level 108 mmol/L 101-111 Carbon Dioxide Level 26 mmol/L 22-32 Calcium Level 9.1 mg/dL 8.6-10.3 C-Reactive Protein 2.16 mg/L 0-8.00 Blood Urea Nitrogen 28 mg/dL High 6-24 BUN/Creatinine Ratio 28.9 High 8-20 Aspartate Amino Transf (Ast/Sgot) 21 U/L 13-39 Anion Gap 5 mmol/L 2-11 Alkaline Phosphatase 44 U/L 34-104 Albumin/Globulin Ratio 1.8 1-3 Albumin 4.5 g/dL 3.2-5.2 Alanine Aminotransferase (Alt/SGPT) 26 U/L 7-52 White Blood Count 5.4 10^3/uL 3.5-10.8 Red Cell Distribution Width 14 % 10-15 Red Blood Count 5.08 10^6/uL 4.18-5.48 Platelet Count 225 10^3/uL 150-450 Nucleated Red Blood Cells % 0.3 Nucleated RBC Absolute Count (auto) 0.0 10^3/ul Neutrophils (%) (Auto) 46.1 % Monocytes (%) (Auto) 11.8 % Mean Platelet Volume 8.6 fL 7.4-10.4 Mean Corpuscular Volume 89 fL 80-94 Mean Corpuscular Hemoglobin Concent 34 g/dL 31-36 Mean Corpuscular Hemoglobin 30 pg 27-31 Lymphocytes (%) (Auto) 37.3 % Hemoglobin 15.1 g/dL 14.0-18.0 Hematocrit 45 % 42-52 Eosinophils (%) (Auto) 4.1 % Basophils (%) (Auto) 0.7 % Absolute Neutrophils (auto) 2.5 10^3/ul 1.5-7.7 Absolute Monocytes (auto) 0.6 10^3/ul 0-0.8 Absolute Lymphocytes (auto) 2.0 10^3/ul 1.0-4.8 Absolute Eosinophils (auto) 0.2 10^3/ul 0-0.6 Absolute Basophils (auto) 0.0 10^3/ul 0-0.2 Laboratory Studies 04/05/2019 N2N/CCD Import Creatinine 0.97 mg/dL 0.67- 1.17 Chloride Level 108 mmol/L 101-111 Carbon Dioxide Level 26 mmol/L 22-32 Calcium Level 9.1 mg/dL 8.6-10.3 C-Reactive Protein 2.16 mg/L 0-8.00 Blood Urea Nitrogen 28 mg/dL High 6-24 BUN/Creatinine Ratio 28.9 High 8-20 Aspartate Amino Transf (Ast/Sgot) 21 U/L 13-39 Anion Gap 5 mmol/L 2-11 Alkaline Phosphatase 44 U/L 34-104 Albumin/Globulin Ratio 1.8 1-3 Albumin 4.5 g/dL 3.2-5.2 Alanine Aminotransferase (Alt/SGPT) 26 U/L 7-52 White Blood Count 5.4 10^3/uL 3.5-10.8 Red Cell Distribution Width 14 % 10-15 Red Blood Count 5.08 10^6/uL 4.18-5.48 Platelet Count 225 10^3/uL 150-450 Nucleated Red Blood Cells % 0.3 Nucleated RBC Absolute Count (auto) 0.0 10^3/ul Neutrophils (%) (Auto) 46.1 % Monocytes (%) (Auto) 11.8 % Mean Platelet Volume 8.6 fL 7.4-10.4 Mean Corpuscular Volume 89 fL 80-94 Mean Corpuscular Hemoglobin Concent 34 g/dL 31-36 Mean Corpuscular Hemoglobin 30 pg 27-31 Lymphocytes (%) (Auto) 37.3 % Hemoglobin 15.1 g/dL 14.0-18.0 Hematocrit 45 % 42-52 Eosinophils (%) (Auto) 4.1 % Basophils (%) (Auto) 0.7 % Absolute Neutrophils (auto) 2.5 10^3/ul 1.5-7.7 Absolute Monocytes (auto) 0.6 10^3/ul 0-0.8 Absolute Lymphocytes (auto) 2.0 10^3/ul 1.0-4.8 Absolute Eosinophils (auto) 0.2 10^3/ul 0-0.6 Absolute Basophils (auto) 0.0 10^3/ul 0-0.2 Laboratory Studies 04/05/2019 N2N/CCD Import Chloride Level 108 mmol/L 101-111 Carbon Dioxide Level 26 mmol/L 22-32 Calcium Level 9.1 mg/dL 8.6-10.3 C-Reactive Protein 2.16 mg/L 0-8.00 Blood Urea Nitrogen 28 mg/dL High 6-24 BUN/Creatinine Ratio 28.9 High 8-20 Aspartate Amino Transf (Ast/Sgot) 21 U/L 13-39 Anion Gap 5 mmol/L 2-11 Alkaline Phosphatase 44 U/L 34-104 Albumin/Globulin Ratio 1.8 1-3 Albumin 4.5 g/dL 3.2-5.2 Alanine Aminotransferase (Alt/SGPT) 26 U/L 7-52 White Blood Count 5.4 10^3/uL 3.5-10.8 Red Cell Distribution Width 14 % 10-15 Red Blood Count 5.08 10^6/uL 4.18-5.48 Platelet Count 225 10^3/uL 150-450 Nucleated Red Blood Cells % 0.3 Nucleated RBC Absolute Count (auto) 0.0 10^3/ul Neutrophils (%) (Auto) 46.1 % Monocytes (%) (Auto) 11.8 % Mean Platelet Volume 8.6 fL 7.4-10.4 Mean Corpuscular Volume 89 fL 80-94 Mean Corpuscular Hemoglobin Concent 34 g/dL 31-36 Mean Corpuscular Hemoglobin 30 pg 27-31 Lymphocytes (%) (Auto) 37.3 % Hemoglobin 15.1 g/dL 14.0-18.0 Hematocrit 45 % 42-52 Eosinophils (%) (Auto) 4.1 % Basophils (%) (Auto) 0.7 % Absolute Neutrophils (auto) 2.5 10^3/ul 1.5-7.7 Absolute Monocytes (auto) 0.6 10^3/ul 0-0.8 Absolute Lymphocytes (auto) 2.0 10^3/ul 1.0-4.8 Absolute Eosinophils (auto) 0.2 10^3/ul 0-0.6 Absolute Basophils (auto) 0.0 10^3/ul 0-0.2 Laboratory Studies 04/05/2019 N2N/CCD Import Carbon Dioxide Level 26 mmol/ L 22-32 Calcium Level 9.1 mg/dL 8.6-10.3 C-Reactive Protein 2.16 mg/L 0-8.00 Blood Urea Nitrogen 28 mg/dL High 6-24 BUN/Creatinine Ratio 28.9 High 8-20 Aspartate Amino Transf (Ast/Sgot) 21 U/L 13-39 Anion Gap 5 mmol/L 2-11 Alkaline Phosphatase 44 U/L 34-104 Albumin/Globulin Ratio 1.8 1-3 Albumin 4.5 g/dL 3.2-5.2 Alanine Aminotransferase (Alt/SGPT) 26 U/L 7-52 White Blood Count 5.4 10^3/uL 3.5-10.8 Red Cell Distribution Width 14 % 10-15 Red Blood Count 5.08 10^6/uL 4.18-5.48 Platelet Count 225 10^3/uL 150-450 Nucleated Red Blood Cells % 0.3 Nucleated RBC Absolute Count (auto) 0.0 10^3/ul Neutrophils (%) (Auto) 46.1 % Monocytes (%) (Auto) 11.8 % Mean Platelet Volume 8.6 fL 7.4-10.4 Mean Corpuscular Volume 89 fL 80-94 Mean Corpuscular Hemoglobin Concent 34 g/dL 31-36 Mean Corpuscular Hemoglobin 30 pg 27-31 Lymphocytes (%) (Auto) 37.3 % Hemoglobin 15.1 g/dL 14.0-18.0 Hematocrit 45 % 42-52 Eosinophils (%) (Auto) 4.1 % Basophils (%) (Auto) 0.7 % Absolute Neutrophils (auto) 2.5 10^3/ul 1.5-7.7 Absolute Monocytes (auto) 0.6 10^3/ul 0-0.8 Absolute Lymphocytes (auto) 2.0 10^3/ul 1.0-4.8 Absolute Eosinophils (auto) 0.2 10^3/ul 0-0.6 Absolute Basophils (auto) 0.0 10^3/ul 0-0.2 Laboratory Studies 04/05/2019 N2N/CCD Import Calcium Level 9.1 mg/dL 8.6 -10.3 C-Reactive Protein 2.16 mg/L 0-8.00 Blood Urea Nitrogen 28 mg/dL High 6-24 BUN/Creatinine Ratio 28.9 High 8-20 Aspartate Amino Transf (Ast/Sgot) 21 U/L 13-39 Anion Gap 5 mmol/L 2-11 Alkaline Phosphatase 44 U/L 34-104 Albumin/Globulin Ratio 1.8 1-3 Albumin 4.5 g/dL 3.2-5.2 Alanine Aminotransferase (Alt/SGPT) 26 U/L 7-52 White Blood Count 5.4 10^3/uL 3.5-10.8 Red Cell Distribution Width 14 % 10-15 Red Blood Count 5.08 10^6/uL 4.18-5.48 Platelet Count 225 10^3/uL 150-450 Nucleated Red Blood Cells % 0.3 Nucleated RBC Absolute Count (auto) 0.0 10^3/ul Neutrophils (%) (Auto) 46.1 % Monocytes (%) (Auto) 11.8 % Mean Platelet Volume 8.6 fL 7.4-10.4 Mean Corpuscular Volume 89 fL 80-94 Mean Corpuscular Hemoglobin Concent 34 g/dL 31-36 Mean Corpuscular Hemoglobin 30 pg 27-31 Lymphocytes (%) (Auto) 37.3 % Hemoglobin 15.1 g/dL 14.0-18.0 Hematocrit 45 % 42-52 Eosinophils (%) (Auto) 4.1 % Basophils (%) (Auto) 0.7 % Absolute Neutrophils (auto) 2.5 10^3/ul 1.5-7.7 Absolute Monocytes (auto) 0.6 10^3/ul 0-0.8 Absolute Lymphocytes (auto) 2.0 10^3/ul 1.0-4.8 Absolute Eosinophils (auto) 0.2 10^3/ul 0-0.6 Absolute Basophils (auto) 0.0 10^3/ul 0-0.2 Laboratory Studies 04/05/2019 N2N/CCD Import C-Reactive Protein 2.16 mg/L 0-8.00 Blood Urea Nitrogen 28 mg/dL High 6-24 BUN/Creatinine Ratio 28.9 High 8-20 Aspartate Amino Transf (Ast/Sgot) 21 U/L 13-39 Anion Gap 5 mmol/L 2-11 Alkaline Phosphatase 44 U/L 34-104 Albumin/Globulin Ratio 1.8 1-3 Albumin 4.5 g/dL 3.2-5.2 Alanine Aminotransferase (Alt/SGPT) 26 U/L 7-52 White Blood Count 5.4 10^3/uL 3.5-10.8 Red Cell Distribution Width 14 % 10-15 Red Blood Count 5.08 10^6/uL 4.18-5.48 Platelet Count 225 10^3/uL 150-450 Nucleated Red Blood Cells % 0.3 Nucleated RBC Absolute Count (auto) 0.0 10^3/ul Neutrophils (%) (Auto) 46.1 % Monocytes (%) (Auto) 11.8 % Mean Platelet Volume 8.6 fL 7.4-10.4 Mean Corpuscular Volume 89 fL 80-94 Mean Corpuscular Hemoglobin Concent 34 g/dL 31-36 Mean Corpuscular Hemoglobin 30 pg 27-31 Lymphocytes (%) (Auto) 37.3 % Hemoglobin 15.1 g/dL 14.0-18.0 Hematocrit 45 % 42-52 Eosinophils (%) (Auto) 4.1 % Basophils (%) (Auto) 0.7 % Absolute Neutrophils (auto) 2.5 10^3/ul 1.5-7.7 Absolute Monocytes (auto) 0.6 10^3/ul 0-0.8 Absolute Lymphocytes (auto) 2.0 10^3/ul 1.0-4.8 Absolute Eosinophils (auto) 0.2 10^3/ul 0-0.6 Absolute Basophils (auto) 0.0 10^3/ul 0-0.2 Laboratory Studies 04/05/2019 N2N/CCD Import Blood Urea Nitrogen 28 mg/dL High 6-24 BUN/Creatinine Ratio 28.9 High 8-20 Aspartate Amino Transf (Ast/Sgot) 21 U/L 13-39 Anion Gap 5 mmol/L 2-11 Alkaline Phosphatase 44 U/L 34-104 Albumin/Globulin Ratio 1.8 1-3 Albumin 4.5 g/dL 3.2-5.2 Alanine Aminotransferase (Alt/SGPT) 26 U/L 7-52 White Blood Count 5.4 10^3/uL 3.5-10.8 Red Cell Distribution Width 14 % 10-15 Red Blood Count 5.08 10^6/uL 4.18-5.48 Platelet Count 225 10^3/uL 150-450 Nucleated Red Blood Cells % 0.3 Nucleated RBC Absolute Count (auto) 0.0 10^3/ul Neutrophils (%) (Auto) 46.1 % Monocytes (%) (Auto) 11.8 % Mean Platelet Volume 8.6 fL 7.4-10.4 Mean Corpuscular Volume 89 fL 80-94 Mean Corpuscular Hemoglobin Concent 34 g/dL 31-36 Mean Corpuscular Hemoglobin 30 pg 27-31 Lymphocytes (%) (Auto) 37.3 % Hemoglobin 15.1 g/dL 14.0-18.0 Hematocrit 45 % 42-52 Eosinophils (%) (Auto) 4.1 % Basophils (%) (Auto) 0.7 % Absolute Neutrophils (auto) 2.5 10^3/ul 1.5-7.7 Absolute Monocytes (auto) 0.6 10^3/ul 0-0.8 Absolute Lymphocytes (auto) 2.0 10^3/ul 1.0-4.8 Absolute Eosinophils (auto) 0.2 10^3/ul 0-0.6 Absolute Basophils (auto) 0.0 10^3/ul 0-0.2 Laboratory Studies 04/05/2019 N2N/CCD Import BUN/Creatinine Ratio 28.9 High 8-20 Aspartate Amino Transf (Ast/Sgot) 21 U/L 13-39 Anion Gap 5 mmol/L 2-11 Alkaline Phosphatase 44 U/L 34-104 Albumin/Globulin Ratio 1.8 1-3 Albumin 4.5 g/dL 3.2-5.2 Alanine Aminotransferase (Alt/SGPT) 26 U/L 7-52 White Blood Count 5.4 10^3/uL 3.5-10.8 Red Cell Distribution Width 14 % 10-15 Red Blood Count 5.08 10^6/uL 4.18-5.48 Platelet Count 225 10^3/uL 150-450 Nucleated Red Blood Cells % 0.3 Nucleated RBC Absolute Count (auto) 0.0 10^3/ul Neutrophils (%) (Auto) 46.1 % Monocytes (%) (Auto) 11.8 % Mean Platelet Volume 8.6 fL 7.4-10.4 Mean Corpuscular Volume 89 fL 80-94 Mean Corpuscular Hemoglobin Concent 34 g/dL 31-36 Mean Corpuscular Hemoglobin 30 pg 27-31 Lymphocytes (%) (Auto) 37.3 % Hemoglobin 15.1 g/dL 14.0-18.0 Hematocrit 45 % 42-52 Eosinophils (%) (Auto) 4.1 % Basophils (%) (Auto) 0.7 % Absolute Neutrophils (auto) 2.5 10^3/ul 1.5-7.7 Absolute Monocytes (auto) 0.6 10^3/ul 0-0.8 Absolute Lymphocytes (auto) 2.0 10^3/ul 1.0-4.8 Absolute Eosinophils (auto) 0.2 10^3/ul 0-0.6 Absolute Basophils (auto) 0.0 10^3/ul 0-0.2 Laboratory Studies 04/05/2019 N2N/CCD Import Aspartate Amino Transf 21 U/L 13-39 (Ast/Sgot) Anion Gap 5 mmol/L 2-11 Alkaline Phosphatase 44 U/L 34-104 Albumin/Globulin Ratio 1.8 1-3 Albumin 4.5 g/dL 3.2-5.2 Alanine Aminotransferase (Alt/SGPT) 26 U/L 7-52 White Blood Count 5.4 10^3/uL 3.5-10.8 Red Cell Distribution Width 14 % 10-15 Red Blood Count 5.08 10^6/uL 4.18-5.48 Platelet Count 225 10^3/uL 150-450 Nucleated Red Blood Cells % 0.3 Nucleated RBC Absolute Count (auto) 0.0 10^3/ul Neutrophils (%) (Auto) 46.1 % Monocytes (%) (Auto) 11.8 % Mean Platelet Volume 8.6 fL 7.4-10.4 Mean Corpuscular Volume 89 fL 80-94 Mean Corpuscular Hemoglobin Concent 34 g/dL 31-36 Mean Corpuscular Hemoglobin 30 pg 27-31 Lymphocytes (%) (Auto) 37.3 % Hemoglobin 15.1 g/dL 14.0-18.0 Hematocrit 45 % 42-52 Eosinophils (%) (Auto) 4.1 % Basophils (%) (Auto) 0.7 % Absolute Neutrophils (auto) 2.5 10^3/ul 1.5-7.7 Absolute Monocytes (auto) 0.6 10^3/ul 0-0.8 Absolute Lymphocytes (auto) 2.0 10^3/ul 1.0-4.8 Absolute Eosinophils (auto) 0.2 10^3/ul 0-0.6 Absolute Basophils (auto) 0.0 10^3/ul 0-0.2 Laboratory Studies 04/05/2019 N2N/CCD Import Anion Gap 5 mmol/L 2-11 Alkaline Phosphatase 44 U/L 34-104 Albumin/Globulin Ratio 1.8 1-3 Albumin 4.5 g/dL 3.2-5.2 Alanine Aminotransferase (Alt/SGPT) 26 U/L 7-52 White Blood Count 5.4 10^3/uL 3.5-10.8 Red Cell Distribution Width 14 % 10-15 Red Blood Count 5.08 10^6/uL 4.18-5.48 Platelet Count 225 10^3/uL 150-450 Nucleated Red Blood Cells % 0.3 Nucleated RBC Absolute Count (auto) 0.0 10^3/ul Neutrophils (%) (Auto) 46.1 % Monocytes (%) (Auto) 11.8 % Mean Platelet Volume 8.6 fL 7.4-10.4 Mean Corpuscular Volume 89 fL 80-94 Mean Corpuscular Hemoglobin Concent 34 g/dL 31-36 Mean Corpuscular Hemoglobin 30 pg 27-31 Lymphocytes (%) (Auto) 37.3 % Hemoglobin 15.1 g/dL 14.0-18.0 Hematocrit 45 % 42-52 Eosinophils (%) (Auto) 4.1 % Basophils (%) (Auto) 0.7 % Absolute Neutrophils (auto) 2.5 10^3/ul 1.5-7.7 Absolute Monocytes (auto) 0.6 10^3/ul 0-0.8 Absolute Lymphocytes (auto) 2.0 10^3/ul 1.0-4.8 Absolute Eosinophils (auto) 0.2 10^3/ul 0-0.6 Absolute Basophils (auto) 0.0 10^3/ul 0-0.2 Laboratory Studies 04/05/2019 N2N/CCD Import Alkaline Phosphatase 44 U/L 34-104 Albumin/Globulin Ratio 1.8 1-3 Albumin 4.5 g/dL 3.2-5.2 Alanine Aminotransferase (Alt/SGPT) 26 U/L 7-52 White Blood Count 5.4 10^3/uL 3.5-10.8 Red Cell Distribution Width 14 % 10-15 Red Blood Count 5.08 10^6/uL 4.18-5.48 Platelet Count 225 10^3/uL 150-450 Nucleated Red Blood Cells % 0.3 Nucleated RBC Absolute Count (auto) 0.0 10^3/ul Neutrophils (%) (Auto) 46.1 % Monocytes (%) (Auto) 11.8 % Mean Platelet Volume 8.6 fL 7.4-10.4 Mean Corpuscular Volume 89 fL 80-94 Mean Corpuscular Hemoglobin Concent 34 g/dL 31-36 Mean Corpuscular Hemoglobin 30 pg 27-31 Lymphocytes (%) (Auto) 37.3 % Hemoglobin 15.1 g/dL 14.0-18.0 Hematocrit 45 % 42-52 Eosinophils (%) (Auto) 4.1 % Basophils (%) (Auto) 0.7 % Absolute Neutrophils (auto) 2.5 10^3/ul 1.5-7.7 Absolute Monocytes (auto) 0.6 10^3/ul 0-0.8 Absolute Lymphocytes (auto) 2.0 10^3/ul 1.0-4.8 Absolute Eosinophils (auto) 0.2 10^3/ul 0-0.6 Absolute Basophils (auto) 0.0 10^3/ul 0-0.2 1 [id number] 2 SEE RESULT BELOW Name: JEET PATTERSON II : [address]: Joselyn Moran MD Acct: [id number] Unit: [id number] AGE: 59 Location: [facility] Re04/15/19 SEX: M Status: DEP REF SPEC: [id number] AMY: 04/15/19-[address] [facility] [address]: Joselyn Grewal MD REQ: [id number] RECD: 04/15/19-1550 STATUS: KELSI VILLEDA DR: Caryn Murillo MD _ ORDERED: LEVEL 4/3 COMMENTS: [id number] FINAL DIAGNOSIS 1. Colon, cecum, biopsy: -- Tubular adenoma. -- No high grade dysplasia or malignancy. 2. Colon, hepatic flexure, biopsy: -- Hyperplastic polyp. 3. Colon, descending, biopsy: -- Hyperplastic polyp. POST-OPERATIVE DIAGNOSIS Colonoscopy: to cecum; terminal ileum; cecal 3 mm jumbo; hepatic flexure 3 mm jumbo; descending 4 mm cold snare and jumbo; diverticulosis (left greater than right ); expressed purulence from diverticulosis GROSS DESCRIPTION 1. The specimen is received in formalin labeled, Biopsy Cecal Polyp, and consists of a 0.5 x 0.3 x 0.1 cm coleman-pink irregular soft tissue fragment which is submitted entirely in one cassette. 2. The specimen is received in formalin labeled, Biopsy Hepatic Flexure Polyp, and consists of a 0.2 x 0.2 x 0.2 cm coleman-pink polypoid soft tissue fragment which is submitted entirely in one cassette. 3. The specimen is received in formalin labeled, Descending Colon Polyp, and consists of a CONTINUED ON NEXT PAGE DEPARTMENT OF PATHOLOGY, [address] [place] [address] Gonsalo Estrada M.D. Director [facility] # [id number] RUN DATE: 04/16/19 [facility] LAB LIVE PAGE 2 Patient: JEET PATTERSON II [id number] (Continued) GROSS DESCRIPTION (Continued) 0.7 by up to 0.3 x 0.1 cm coleman irregular soft tissue fragment which is submitted entirely in one cassette. Signed by and Reported on: Genesis Montgomery MD 04/16/19 1456 END OF REPORT DEPARTMENT OF PATHOLOGY, [address] [facility], [place] [address] Gonsalo Estrada M.D. Director [facility] # [id number] Procedures Date Code Description Status 04/15/2019 63222 Moderate Sedation Services; Same Phys Each Additional 15 Completed Mins 04/15/2019 52995 Moderate Sedation Services; Same Phys Each Additional 15 Completed Mins 04/15/2019 48204 Moderate Sedation Services; Same Phys Intl 15 Mins; PT >= Completed 5 Years 04/15/2019 95677 Colonscopy+Biopsy Completed Medical Devices Description No Information Available Encounters Type Date Location Provider Dx Diagnosis Office Visit 04/06/2019 Gastroenterology Joselyn K62.5 Hemorrhage of 9:30a [facility] Moran MD anus and rectum Assessments Date Code Description Provider 07/23/2019 Z86.19 Personal history of other infectious and Joselyn Grewal MD parasitic diseases 07/23/2019 K58.0 Irritable bowel syndrome with diarrhea Joselyn Moran MD 07/23/2019 Z86.010 Personal history of colonic polyps Joselyn Moran MD 04/15/2019 R19.7 Diarrhea, unspecified Joselyn Moran MD 04/15/2019 D12.0 Benign neoplasm of cecum Joselyn Moran MD 04/06/2019 K62.5 Hemorrhage of anus and rectum Joselyn Moran MD Plan of Treatment 07/23/2019 - Joselyn Moran MDZ86.19 Personal history of other infectious and parasitic komwmmabL40.0 Irritable bowel syndrome with diarrheaNew Labs: Hepatitis C Rna Quant, Ordered: 07/23/19Z86.010 Personal history of colonic polyps Functional Status Description No Information Available Mental Status Description No Information Available Referrals Description No Information Available
[2019-07-28] MEDS ORDERED: Nitro 2% OINT* (Nitroglycerin) 1 INCH/PAK PAK TOPICAL ONE (09:20)
[2019-07-28] MEDS ORDERED: Aspirin 81 mg CHEW TAB* 81 MG TAB.CHEW PO ONE (09:20)
--- NOTE | 2019-07-28 09:24 | ED ---
HPI Chest Pain - HPI Summary HPI Summary: Patient is a 59 y/o M presenting to [facility] with complaints of mid-sternal chest pain that onset at around 0700 07/28/19 while patient was sitting at a table with his partner. Patient had awoken at 0600 this morning. Pain is noted to radiate upwards to the back of his head. Initial pain was 6/10, current pain is 4/10. He states that SOB onset some time after chest pain. He endorses nausea but denies vomiting. Patient was evaluated for reported similar previous episode 07/23/19. He was admitted for workup and discharged 07/24/19 with BP medication. Patient states that he was evaluated by Dr. Randolph. PMHx of HTN and BPH noted. Patient reports he was scheduled for cardiac stress test today, 07/28. He denies previous cardiac history. Patient took baby ASA earlier today. Home medications and allergies are reviewed. - History of Current Complaint Chief Complaint: EDChestPainROMI Time Seen by Provider: 07/28/19 09:08 Hx Obtained From: Patient Onset/Duration: Started Hours Ago, Still Present Timing: Constant, Lasting Hours Initial Severity: Moderate Current Severity: Moderate Pain Intensity: 6 Pain Scale Used: 0-10 Numeric Chest Pain Location: Mid Sternal Chest Pain Radiates: Yes Chest Pain Radiates To:: Other - upwards to back of head Associated Signs and Symptoms: Positive: Chest Pain, Shortness of Breath, Nausea. Negative: Vomiting - Allergy/Home Medications Allergies/Adverse Reactions: Allergies Allergy/AdvReac Type Severity Reaction Status Date / Time codeine Allergy Unknown Unknown Verified 07/23/19 22:30 Reaction Details Home Medications: Home Medications RiFAXimin* [Xifaxan*] 550 mg PO TID 07/28/19 [History Confirmed 07/28/19] PMH/Surg Hx/FS Hx/Imm Hx Endocrine/Hematology History: Denies: Hx Diabetes, Hx Thyroid Disease Cardiovascular History: Denies: Hx Hypertension Respiratory History: Denies: Hx Asthma, Hx Chronic Obstructive Pulmonary Disease (COPD) GI History: Denies: Hx Ulcer Comment Only: Other GI Disorders - diverticulitis Sensory History: Reports: Hx Contacts or Glasses Denies: Hx Hearing Aid Opthamlomology History: Reports: Hx Contacts or Glasses - Cancer History Hx Chemotherapy: No Hx Radiation Therapy: No - Surgical History Surgery Procedure, Year, and Place: hernia repair 1962 - Immunization History Date of Tetanus Vaccine: UNK Infectious Disease History: No Infectious Disease History: Denies: Hx Hepatitis, Hx Human Immunodeficiency Virus (HIV), Traveled Outside the [place] in Last 30 Days - Family History Known Family History: Positive: Cardiac Disease - mother and father have had bypass. Paternal parent's young Negative: Hypertension, Diabetes - Social History Alcohol Use: Occasionally Hx Substance Use: No Substance Use Type: Reports: None Hx Tobacco Use: No Smoking Status (MU): Never Smoked Tobacco Review of Systems Positive: Chest Pain Positive: Shortness Of Breath Positive: Nausea. Negative: Vomiting All Other Systems Reviewed And Are Negative: Yes Physical Exam - Summary Physical Exam Summary: VITAL SIGNS: Reviewed. GENERAL: Patient is a well-developed and nourished male who is lying comfortable in the stretcher. Patient is not in any acute respiratory distress. Anxious in appearance. HEAD AND FACE: No signs of trauma. No ecchymosis, hematomas or skull depressions. No sinus tenderness. EYES: PERRLA, EOMI x 2, No injected conjunctiva, no nystagmus. EARS: Hearing grossly intact. Ear canals and tympanic membranes are within normal limits. MOUTH: Oropharynx within normal limits. NECK: Supple, trachea is midline, no adenopathy, no JVD, no carotid bruit, no c- spine tenderness, neck with full ROM. CHEST: Symmetric, no tenderness at palpation. LUNGS: Clear to auscultation bilaterally. No wheezing or crackles. CVS: Regular rate and rhythm, S1 and S2 present, no murmurs or gallops appreciated. ABDOMEN: Soft, non-tender. No signs of distention. No rebound, no guarding, and no masses palpated. Bowel sounds are normal. EXTREMITIES: FROM in all major joints, no edema, no cyanosis or clubbing. NEURO: Alert and oriented x 3. No acute neurological deficits. Speech is normal and follows commands. SKIN: Dry and warm. Triage Information Reviewed: Yes Vital Signs On Initial Exam: Initial Vitals Temp Pulse Resp BP Pulse Ox 97.8 F 69 18 195/88 100 07/28/19 08:54 07/28/19 08:54 07/28/19 08:54 07/28/19 08:54 07/28/19 08:54 Vital Signs Reviewed: Yes Procedures - Sedation Patient Received Moderate/Deep Sedation with Procedure: No Diagnostics - Vital Signs Vital Signs Temp Pulse Resp BP Pulse Ox 07/28/19 08:54 97.8 F 69 18 195/88 100 - Laboratory Result Diagrams: 07/28/19 09:09 07/28/19 09:09 Lab Statement: Any lab studies that have been ordered have been reviewed, and results considered in the medical decision making process. - Radiology CXR Radiology Interpretation Completed By: Radiologist Summary of Radiographic Findings: IMPRESSION: NO ACUTE CARDIOPULMONARY PROCESS BY RADIOGRAPH. THIS REPORT WAS REVIEWED BY ED PHYSICIAN. - EKG 0853 Cardiac Rate: NL - rate of 69 BPM EKG Rhythm: Sinus Rhythm Summary of EKG Findings: EKG showed NSR with rate of 69 BPM, no ST elevations, normal axis. ED physician has reviewed and interpreted this EKG. Chest Pain Course/Dx - Course Assessment/Plan: Patient is a 59 y/o M presenting to [facility] with complaints of mid-sternal chest pain that onset at around 0700 07/28/19 while patient was sitting at a table with his partner. Patient had awoken at 0600 this morning. Pain is noted to radiate upwards to the back of his head. He states that SOB onset some time after chest pain. He endorses nausea as well but denies vomiting. Patient was evaluated for reported similar previous episode 07/23/19. He was admitted for workup,. He denies previous cardiac history. Patient took baby ASA earlier today. Blood work without any significant abnormality except for glucose 108, total bili is 1.4. Chest x-ray impression: No acute cardiopulmonary process. EKG shows a normal sinus rhythm without any ST elevations. Has a normal axis. EKG is similar to previous EKG done on . Discussed the case with Dr. Bee and recommends an exercise stress test. No clear stress test impression: Moderate size reversible changes involving the lateral wall of the left ventricle. Normal ejection fraction and motion. At this time Dr. Caputo who performed a stress test recommends for the patient to be discharged on prescriptions for Lipitor 80 mg once a day, Toprol- XL 50 mg once a day, and nitroglycerin 0.4 mg PRN. I discussed all the findings and test results with the patient. Patient was instructed to return to the emergency room immediately if any of the symptoms return or worsen. Plan of care was discussed with the patient and understands and agrees. All questions were answered at patient satisfaction. There were no further complaints or concerns. Lung exam before discharge: CTA B/L. Good air exchange. No wheezing or crackles heard. CVS: S1 and S2 present. No murmurs appreciated. Patient is alert and oriented x 3. Patient is hemodynamically stable. Patient will be discharged home with follow up PCP in the next 2-[address] Randolph. - Chest Pain Differential Diagnosis/HQI/PQRI: Acute MN, ACS, Angina, CHF, Chest Wall, GI Disease, Lower Respiratory Infection, Pulmonary Edema - Diagnoses Provider Diagnoses: Angina pectoris - Provider Notifications Discussed Care Of Patient With: Annia Winn Time Discussed With Above Provider: 10:21 Instructed by Provider To: Other - 1021 - Patient's case was discussed with Dr. Winn, Dr. Winn will consult with Dr. Randolph. 1030 - Dr. Winn reports that they want to do a nuclear stress test with patient today. Discharge ED - Sign-Out/Discharge Documenting (check all that apply): Patient Departure - Discharge Plan Condition: Stable Disposition: HOME Prescriptions: Atorvastatin* [Lipitor*] 80 mg PO DAILY #30 tab Metoprolol Succinate XL TAB* [Toprol XL TAB*] 50 mg PO DAILY #30 tab.xl Nitroglycerin TAB 0.4 MG* 0.4 mg SL Q5M PRN #100 tab PRN Reason: Angina Patient Education Materials: Angina (ED) Referrals: Caryn Murillo MD [Primary Care Provider] - Additional Instructions: Follow up with your primary care provider in 2-3 days. Return to the Emergency Department if you experience new or worsened symptoms. - Billing Disposition and Condition Condition: STABLE Disposition: Home - Attestation Statements Document Initiated by Aden: Yes Documenting Scribe: SEAN MILLIGAN Provider For Whom Aden is Documenting (Include Credential): AMRIT BOLAÑOS MD Scribe Attestation: SEAN Ma scribed for AMRIT BOLÑAOS MD on 07/29/19 at 1052. Scribe Documentation Reviewed: Yes Provider Attestation: The documentation as recorded by the SEAN griffin accurately reflects the service I personally performed and the decisions made by me, AMRIT BOLAÑOS MD Status of Scribe Document: Viewed
[2019-07-28 09:40] LABS: ABS Basophils 0.1 10^3/ul (0-0.2); ABS Eosinophils 0.2 10^3/ul (0-0.6); ABS Lymphocytes 2.3 10^3/ul (1.0-4.8); ABS Monocytes 0.8 10^3/ul (0-0.8); ABS Neutrophils 2.8 10^3/ul (1.5-7.7); Eosinophil % 3.8 %; Hematocrit 49 % (42-52); Hemoglobin 17.1 g/dL (14.0-18.0); Lymphocyte % 37.7 %; Mean Corpuscular HGB Conc 35 g/dL (31-36); Mean Corpuscular Hemoglobin 30 pg (27-31); Mean Corpuscular Volume 87 fL (80-94); Mean Platelet Volume 8.3 fL (7.4-10.4); Nucleated Red Blood Cells % 0.5; Platelet Count 253 10^3/uL (150-450); Red Blood Count 5.63 10^6 /uL (4.18-5.48); Red Cell Distribution Width 14 % (10-15); White Blood Count 6.2 10^3/uL (3.5-10.8)
[2019-07-28 09:48] LABS: INR 1.03 (0.82-1.09)
[2019-07-28 09:54] LABS: Albumin 4.6 g/dL (3.2-5.2); Albumin/Globulin Ratio 1.4 (1-3); BUN/Creatinine Ratio 18.1 (8-20); Calcium 9.8 mg/dL (8.6-10.3); EGFR African American 87.5 (>60); EGFR Non-African American 72.3 (>60); Globulin 3.4 g/dL (2-4); Total Bilirubin 1.4 mg/dL (0.2-1.0)
[2019-07-28 09:57] LABS: Troponin I 0.01 ng/mL (<0.03)
[2019-07-28 09:58] LABS: CKMB ng/mL 3.5 ng/mL (0.6-6.3)
[2019-07-28 10:28] LABS: TSH (Thyroid Stimulating Horm) 2.29 mcIU/mL (0.34-5.60)
[2019-07-28 10:52] LABS: Magnesium 1.9 mg/dL (1.9-2.7)
[2019-07-28 11:17] LABS: CKMB ng/mL 3.4 ng/mL (0.6-6.3)
[2019-07-28 13:28] LABS: Urine Appearance Clear; Urine Bilirubin Negative (Negative); Urine Blood Negative (Negative); Urine Color Yellow; Urine Glucose Negative (Negative); Urine Ketones 1+ (Negative); Urine Nitrite Negative (Negative); Urine Protein Negative (Negative); Urine Specific Gravity 1.017 (1.010-1.030); Urine Urobilinogen Negative (Negative)
[2019-07-28 14:36] VITALS: BP 133/74
--- NOTE | 2019-07-28 20:25 | PN ---
CC: Dr. Caryn Murillo; Dr. Timothy Randolph * PROGRESS NOTE: DATE OF NOTE: 07/28/19 - EMERGENCY DEPT PRIMARY CARE PHYSICIAN: Dr. Caryn Murillo. HISTORY: The patient is seen in the ER after stress testing for recurrence of chest discomfort. See Dr Randolph's consult for initial evaluation. He gives a history of fairly typical recent-onset exertional angina, functional class II to III, on no medical therapy. He has had a very few, if any, episodes at rest and has not had prolonged episodes. His 2 ER evaluations included normal electrocardiograms and normal cardiac enzymes. He was scheduled to have an outpatient stress test today, but before that could be done, he presented to the ER with the recurrence of his chest discomfort. Troponin was negative, he underwent stress testing. See the stress test result for details, but in brief , he had the onset of fairly typical angina in stage I at a relatively low heart rate. His anginal severity progressed with exercise and he was forced to stop due to angina before reaching 85% of his target rate; however, at 75% of his target heart rate; which was his maximum, he had a normal blood pressure response and had no EKG changes. His chest pain persisted about 5 to 6 minutes into recovery before resolving. Again, he had no ST changes in recovery. On imaging, he has a moderate circumflex distribution area of ischemia. Comorbidities include hyperlipidemia, prediabetes, and hypertension. He is only on aspirin 81 and lisinopril. I reviewed with him in detail the diagnosis, the usual management of new onset of angina with moderate-risk stress test findings being initially medical, proceeding to intervention for medical failure. He will be started on Lipitor 80, Toprol XL 50, p.r.n. nitroglycerin 0.4, and continue his aspirin and lisinopril. I have scheduled him for a followup appointment next week with Dr. Randolph. We discussed at length activity levels, use of sublingual nitroglycerin , the need to report accelerating angina, prolonged angina or angina unrelieved with sublingual nitroglycerin. He also will need a referal to cardiac rehab for management of his prediabetes. All his questions were answered, he is ready and stable for discharge from the ER. [id number]/[facility] #: [id number] [facility]IATRIC CENTERStephon
== END 2019-07-28 14:35 | disposition home or self-care (01) ==
LOC: ED 08:52
DX: I20.9 Angina pectoris, unspecified (principal); I10 Essential (primary) hypertension; N40.0 Benign prostatic hyperplasia without lower urinary tract symptoms; Z88.5 Allergy status to narcotic agent
CPT/HCPCS: 36415; 71045; 78452; 80053; 81003; 82553; 83735; 83880; 84443; 84484; 85025; 85610; 93005; 93017; 99284; A9270-GY; A9502

== ENCOUNTER 2019-08-13 09:57 | Day surgery (SDC) | payer BC ==
[2019-08-13 11:09] LABS: ABS Eosinophils 0.2 10^3/ul (0-0.6); ABS Lymphocytes 2.1 10^3/ul (1.0-4.8); ABS Monocytes 0.6 10^3/ul (0-0.8); ABS Neutrophils 3.2 10^3/ul (1.5-7.7); Eosinophil % 3.1 %; Hematocrit 47 % (42-52); Hemoglobin 16.3 g/dL (14.0-18.0); Lymphocyte % 33.7 %; Mean Corpuscular HGB Conc 35 g/dL (31-36); Mean Corpuscular Hemoglobin 30 pg (27-31); Mean Corpuscular Volume 87 fL (80-94); Mean Platelet Volume 8.8 fL (7.4-10.4); Nucleated Red Blood Cells % 0.3; Platelet Count 249 10^3/uL (150-450); Red Blood Count 5.44 10^6 /uL (4.18-5.48); Red Cell Distribution Width 13 % (10-15); White Blood Count 6.1 10^3/uL (3.5-10.8)
[2019-08-13 11:25] LABS: BUN/Creatinine Ratio 16.5 (8-20); EGFR African American 103.2 (>60); EGFR Non-African American 85.3 (>60); Potassium 4.3 mmol/L (3.5-5.0)
[2019-08-13] MEDS ORDERED: Lidocaine 1% INJ* 10 MG/ML 30 ML SDV ONE (11:28)
[2019-08-13] MEDS ORDERED: Iohexol 350 (CONTRAST) 200 ML MDV IV ONE (11:28)
[2019-08-13] MEDS ORDERED: Heparin 2 UNITS/ML IVPREMIX* 2,000 ML IV ONE (11:28)
[2019-08-13] MEDS ORDERED: Midazolam* 1 MG/ML 5 ML VIAL (5 MG) ONE (11:30)
[2019-08-13] MEDS ORDERED: Heparin(*) 1000 UNIT/ML 10 ML VIAL CATH LAB IV ONE (11:30)
[2019-08-13] MEDS ORDERED: VERAPAMIL 2.5 MG/ML 2 ML VIAL ** 5 mg/2 ml ONE (11:30)
[2019-08-13] MEDS ORDERED: fentaNYL* 50 MCG/ML 2 ML VIAL (100 MCG VIAL) ONE ×2 (11:30→12:24)
[2019-08-13] MEDS ORDERED: nitroGLYCERIN DRIP* 25,000 MCG/250 ML BTL ONE (11:30)
[2019-08-13] MEDS ORDERED: Aspirin 81 mg CHEW TAB* 81 MG TAB.CHEW ONE (12:21)
[2019-08-13] MEDS ORDERED: Ticagrelor* 90 MG TAB PO ONE (12:22)
[2019-08-13] MEDS ORDERED: Nitroglycerin TAB 0.4 MG* 0.4 MG TAB SL PRN ×2 (13:25→14:37)
[2019-08-13] MEDS ORDERED: Acetaminophen TAB* 325 MG PO PRN (13:25)
[2019-08-13] MEDS ORDERED: NS 0.9% 1000 ML** 400 ML IV SCH (13:30)
[2019-08-13] MEDS ORDERED: RiFAXimin* 550 MG TAB PO ONE (15:00)
[2019-08-13] MEDS: Ticagrelor* 90 MG TAB PO SCH (20:12)
[2019-08-13] MEDS ORDERED: Atorvastatin* 80 MG TAB PO SCH (21:00)
[2019-08-13] MEDS ORDERED: Metoprolol Succinate XL TAB* 50 MG PO SCH (21:00)
--- NOTE | 2019-08-14 01:24 | CATH ---
CC: Dr. Murillo; Dr. Timothy Randolph STENT REPORT: DATE OF PROCEDURE: 08/13/19. PRIMARY CARE PHYSICIAN: Dr. Murillo. FIELD TECHNICIAN: Dr. Timothy Randolph. PROCEDURE: 1. Right radial artery access. 2. Bilateral selective coronary angiography, left heart catheterization. 3. Stent placement circumflex OM 2.5 x 12, distal overlapping 2.5 x 8 Synergy drug- eluting stents. HISTORY: This 59-year-old with functional class II to III angina on beta- corrie and calcium channel therapy, with recent stress imaging with intermediate risk circumflex distribution perfusion defect. He is symptomatically limited in spite of anti-anginal therapy with 2 agents, was referred for diagnostic catheterization and possible revascularization as a failure of medical management. PROCEDURE ACCESS: Right radial artery artery sheath 6F slender. MEDICATIONS: 1. Subcu lidocaine. 2. IV Versed. 3. IV fentanyl. 4. Heparin 3000 units, 4000 units IV. 5. Nitroglycerin 300 mcg. 6. Verapamil 3 mg IA. 7. Nitroglycerin IC 200 mcg post stenting. 8. Aspirin 162 mg p.o. 9. Brilinta 180 mg loading dose. DIAGNOSTIC CATHETERS: 5F TIG4, 5FR4. GUIDING CATHETER: 6F VL 3.5, wire 14 BMW. USE OF DEPLOY: A 2.5 x 12 Synergy drug-eluting stent in circumflex OM1. Second , 2.5 x 8 Synergy drug-eluting stent, was deployed overlapping distally to extend plaque coverage to the distal bifurcation of the marginal. Stents were postdilated with a 2.75 x 12 NC balloon to 16 atmospheres proximally, distally, and 18 atmospheres at overlap area. HEMODYNAMICS: Initial AO 86/59, LV 85/7, final BP 119/72. ANGIOGRAPHY: RCA: The RCA is dominant, moderate, with mild luminal irregularity in its proximal half, with mild calcification. The acute marginal branch supplies the moderate PDA, distally the RCA supplies 2 smaller posterolaterals. The RCA has no significant stenosis. There is a right to left collateral to circumflex OM1. Left main: The left main is normal in size and length, has mild distal taper without significant stenosis. LAD: The LAD is moderate, supplies a moderate bifurcated first diagonal which has mild proximal luminal irregularity. LAD distally reaches the apex. Circumflex: The circumflex is non-dominant, large, supplies a moderate caliber large distribution first marginal which has a proximal eccentric 80% to 90% stenosis, shortly after the reconstitution the vessel bifurcates, there is nonobstructive plaquing in the lower side branch which then again bifurcates. There is mild irregularity at the ostium of the upper side branch. The upper side branch has competitive flow. The circumflex ends with the moderate posterolateral branch. Post stent placement with an overlapping distal second stent to extend coverage to the bifurcation, and after IC nitroglycerin, there is no residual stenosis in the stented segment, excellent expansion, no compromise of the bifurcation, the lower side branch again has mild luminal irregularity. Distal circumflex was not compromised. CONCLUSION: 1. Single-vessel disease with culprit OM1 stenosis, excellent angiographic result with placement of 2 drug-eluting stents. 2. Normal left-sided hemodynamics. 3. Successful right radial artery access. 4. LV gram was not performed. [id number] #: [id number] RISHI
[2019-08-14 06:32] LABS: BUN/Creatinine Ratio 15.7 (8-20); Calcium 9.7 mg/dL (8.6-10.3); EGFR African American 105.9 (>60); EGFR Non-African American 87.5 (>60); Potassium 4.1 mmol/L (3.5-5.0)
[2019-08-14] MEDS: Ticagrelor* 90 MG TAB PO SCH (08:13)
[2019-08-14] MEDS ORDERED: Lisinopril TAB* 10 MG PO SCH (09:00)
[2019-08-14] MEDS ORDERED: Tamsulosin CAP* 0.4 MG PO SCH (09:00)
[2019-08-14] MEDS ORDERED: Influenza VAC *QUAD* 2019-20* 0.5 ML SYRINGE IM ONE (09:00)
[2019-08-14 11:06] VITALS: BP 114/68
[2019-08-14] MEDS ORDERED: Aspirin EC TAB* 81 MG TAB.EC PO SCH (21:00)
== END 2019-08-14 11:50 | disposition home or self-care (01) ==
LOC: CHICATH 09:57 → ICU 13:26
PROVIDERS: ADMIT Internal Medicine Cardiovascular Disease; ATTEND Internal Medicine Cardiovascular Disease
DX: R07.9 Chest pain, unspecified (principal); R94.39 Abnormal result of other cardiovascular function study; Z79.82 Long term (current) use of aspirin; Z79.899 Other long term (current) drug therapy; Z23 Encounter for immunization
CPT/HCPCS: 36415; 80048; 85025; 85347; 87641; 90471; 90686; 93005; 93458; 99156; 99157; A9270-GY; C1725; C1769; C1876; C1887; C9600-LC; G0008; G0378; J1644; J2250; J3010